=== PATIENT | female | born 1955 | race Caucasian/White ===

== ENCOUNTER 2024-10-12 11:28 | Outpatient (AMB) | payer MEDICARE, SELFPAY ==
--- NOTE | 2024-10-12 12:00 | A.OFFVIS_ITS ---
Intake Vital Signs 10/12/24 12:20 Height 5 ft 3 in Weight 138 lb BMI 24.4 BP 144/74 H Blood Pressure Location Lt brachial Position Sitting Respiration 13 Pulse 90 Pulse Source Pulse Oximeter Pulse Oximetry (%) 98 Oxygen Delivery Method Room Air Intake Visit Reasons: Establish Care Intake Note: new patient to establish care and annual awv Surfacing Technician Required: No Allergies morphine Allergy (Severe, Verified 10/12/24 12:29) Itching bandages Allergy (Severe, Uncoded 10/12/24 12:29) Itching flu vaccine Allergy (Severe, Uncoded 10/12/24 12:29) Hives Medication List - Last Reconciled 10/13/24 by Sharon Mendoza, LIBRARIAN SPECIALIST- aspirin 81 mg PO DAILY atorvastatin 40 mg PO DAILY cholecalciferol (vitamin D3) 10 mcg PO DAILY duloxetine 30 mg PO DAILY duloxetine 60 mg PO DAILY lorazepam 1 mg PO BID omeprazole 40 mg PO DAILY oxycodone 5 mg PO BID PRN polysaccharide iron complex (Ferrex) 150 mg PO DAILY trazodone 200 mg PO BEDTIME PRN Do you need a note to return to daycare/school/sports/work: No HPI HPI Comments History of Present Illness Details 69 y/o F with chronic pain, cannabis use , coronary artery disease, major depressive disorder, fibromyalgia, failed back syndrome, GERD with hiatal hernia, hyperlipidemia, irritable bowel syndrome, migraine, renal stones, osteoporosis, polyps of the colon, PTSD, rosacea, urinary incontinence, history of thoracic compression fracture, LBBB , prediabetes, anemia Here today for AWV. The Medicare Annual Wellness Visit (AWV) is a yearly appointment with a health professional to identify health risks and help reduce them and to create or update a personalized prevention plan. During a Medicare AWV, health professionals should also review any current opioid prescriptions, detect any cognitive impairment, and establish or update medical and family history. SurgHx: Insertion of spinal cord stimulator, , lumbar spinal fusion, partial hysterectomy, tonsillectomy FHx: Y SocHx: Lives with her daughter, son-in-law, and two grandchildren Health Maintenance: See scanned preventative medicine assessment with personalized health plan and screening schedule. Colon: 03/12/2019 Mammo January 2024 DEXA Bone density test indicating osteoporosis; treated with injections - i do not have these results 2023 normal per report Vaccines: PCV 13 2017, Tdap 2013, zoster 2012, allergy to flu shot AAA screen: n/a EKG: yes done today shows LBBB - not new, managed by [facility] [place] [facility] Care: [facility] pain mgmt Psychiatry Dr Joaquin Renal * [facility]MIN[facility] DEVELOPER Pain mgmt Endo GI Shilpi Dhillon appt 10/23/24 Visual Acuity: glasses last exam 2 year ago Hearing Screening: no issues, no aides ACP: HCP Shakeel Spivey Dietary/Nutrition/Exercise Edu provided: Y Results Labs resulted 10/01/2024 ordered by an outside provider show normal iron profile and ferritin, normal electrolytes, BUN 28, creatinine 1.23, EGFR 47, normal LFTs During the course of the visit the patient was educated and counseled about appropriate screening and preventative services. Patient instructions were provided to the patient in written or electronic format. I have reviewed and verified the above information. The patient is a 69-year-old female presenting for an annual Medicare wellness visit and to establish care. The patient reports having basal joint arthritis, which causes significant discomfort but she is not inclined towards surgical intervention due to her age and previous experiences. She was released by her orthopedist after declining further cortisone injections or surgery. She has not pursued occupational therapy but remains open to considering it. The patient also experiences severe arthritis pain in her knee, for which she previously received injections. After a negative reaction to the last injection, she is reluctant to continue this treatment. Besides, she reports a chronic history of fibromyalgia contributing to her daily pain. The patient reports a diagnosis of anemia with ongoing treatment. She reports following a renal diet independently after being diagnosed with renal disease. she has osteoporosis, evidenced by a bone density test and is under management with periodic injections. She also reported a prior addiction to fentanyl prescribed for pain management but notes current management with a spinal cord stimulator and marijuana use for chronic pain. ROS: - General : feel she needs more help in the home w her ADLs - Musculoskeletal: Reports bilateral kne e pain, hip pain, thigh pain - Skin: Reports skin rash on the abdomen sometimes itchy - uses topical nystatin powder and cream with + effect Exam Awake alert NAD RRR, 2/6 murmur RSB LS CTAB BLE skin intact, decreased PP, hairless, no edema No rash to abd/inguinal folds Alert and oriented Plan - Consider referral for occupational the rapy for basal joint arthritis - Referral placed for consultation with a different activity specialist if the patient chooses - Referral to endocrinology for osteopor osis management - Referral to pain management center for fibromyalgia and chronic pain evaluation - Referral to [facility] for home assistance evaluation - Referral for renal consultation - Cont current meds - Return for re-evaluation in [facility] six months or sooner if symptoms change An additional 40 minutes was spent addressing the problem(s) noted at todays visit. This includes time spent before the visit reviewing the chart, time spent during the visit, and time spent after the visit on documentation [facility] Medical History (Updated 10/13/24 @ 15:41 by IVAN Vallejo) Migraines Anxiety and depression GERD (gastroesophageal reflux disease) Kidney disease Fibromyalgia Neck ache Osteoarthritis Arthritis Hypertension Surgical History (Updated 10/12/24 @ 12:36 by IVAN Vallejo) Spinal arthrodesis present History of back surgery H/O: hysterectomy H/O section Family History (Updated 10/12/24 @ 12:15 by Brandi Underwood MA) Sister Mental health disorder Maternal Grandfather Cancer Mother Hypertension Cardiovascular disease High cholesterol Diabetes Father Hypertension Cardiovascular disease High cholesterol Social History (Updated 10/12/24 @ 12:16 by Brandi Underwood MA) Household Members: None Both parents involved: No Caregiver staying overnight: No Housing: Apartment Are you a primary home care manager rn to a significant other at home: No Do you presently have visiting nurse or other home services: No 75 years or older and lives alone: No Alcohol intake: never Patient Tobacco Use Status: Never used Tobacco e-Cigarette/Vaping Use: Never Used Second Hand Smoke Exposure: No Substance Use Type: Marijuana Questionnaire Medicare Wellness Checkup [age] What gender do you identify with?: female During the past 4 weeks, how much have you been bothered by emotional problems such as feeling anxious, depressed, irritable, sad or downhearted, and blue?: not at all During the past 4 weeks, has your physical & emotional health limited your social activities with family, friends, neighbors, or groups?: not at all During the past 4 weeks, how much bodily pain have you generally had?: severe pain During the past 4 weeks, was someone available to help you if you needed & wanted help?: yes, a little During the past 4 weeks, what was the hardest physical activity you could do for at least 2 minutes?: light Can you get to places out of walking distance without help? (For eg., can you travel alone on buses, taxis or drive your car?): Yes Can you go shopping for groceries or clothes without someone's help?: Yes Can you prepare your own meals?: Yes Can you do your housework without help?: Yes Because of any health problems, do you need the help of another person with your personal care needs such as eating, bathing, dressing or getting around the house?: No Can you handle your own money without help?: Yes During the past 4 weeks, how would you rate your health in general?: fair During the past 4 weeks how have things been going for you?: good & bad parts about equal Are you having difficulties driving your car?: no Do you always fasten your seat belt when you are in a car?: yes, usually During past 4 weeks, have you been bothered by the following: never: Falling or dizzy when standing up, Sexual problems?, Trouble eating well?, Teeth or denture problems?, Problems using the telephone? and Tiredness or fatigue? Have you fallen 2 or more times in the past year?: No Are you afraid of falling?: No Are you a smoker?: no During the past 4 weeks, how many drinks of wine, beer, or other alcoholic beverages did you have?: no alcohol at all Do you exercise for about 20 minutes 3 or more times a week?: no, I usually do not exercise this much Have you been given information to help with the following?: no: Hazards in your house that might hurt you? and no: Keeping track of your medications? How often do you have trouble taking medicines the way you have been told to take them?: I always take medicine as prescribed How confident are you that you can control & manage most of your health problems?: very confident What is your race?: White Activity of Daily Living Bathing - sponge bath, tub bath or shower: receives no assistance (gets in/out by self, if usual bathing means Dressing - getting clothes from closets & drawers, including inner/outer garments & fasteners.: gets clothes & gets completely dressed without help Toileting - going to the 'toilet room' for urine/bowel elimination & cleaning self/arranging clothes: goes to toilet room, cleans self, arranges clothes without help Transfer: moves in & out of bed and chair without help (may use support object) Continence: controls urination/bowel movements completely by self Feeding: feeds self without help Total Score: 0 Information obtained from: patient Using telephone: independent Traveling: independent Shopping: independent Preparing meals: independent Housework: independent Taking medicine: independent Managing money: independent PHQ-9 Over the last 2 weeks, how often have you been bothered by any of the following problems? 98603 - PHQ-9 Billing: Patient declined-do not bill Source: Developed by Drs. Petey Barton, Aleta Pedersen, Chin Rapp and colleagues, with an educational shantal from [employer]. Physical Exam Vital Signs: Last Vital Signs Pulse 90 10/12/24 12:20 Resp 13 10/12/24 12:20 BP 144/74 H 10/12/24 12:20 Pulse Ox 98 10/12/24 12:20 Oxygen Delivery Method Room Air 10/12/24 12:20 BMI result Body Mass Index 24.4 Office Procedures EKG 21060-[id number], Complete Vision Screening Right Eye: 20/25 Left Eye: 20/20 Bilateral: 20/20 Color: Pass Corrected: Pass (with glasses) 97622 - Vision Screening Results AMB Hemoglobin A1c 2 AMB Hemoglobin A1c 5.6 % Last Edit by Brandi Underwood MA on 10/12/24 12:34 Results Reviewed Results Reviewed: Laboratory Last Values Hgb A1c (Clinic) 5.6 % (4.0-6.0) 10/12/24 12:02 Assessment & Plan Assessment & Plan (1) Encounter for subsequent annual wellness visit (AWV) in Medicare patient: Code(s): Z00.00 - Encounter for general adult medical examination without abnormal findings (2) CKD (chronic kidney disease) stage 3, GFR 30-59 ml/min: Code(s): N18.30 - Chronic kidney disease, stage 3 unspecified Qualifiers: Chronic kidney disease stage 3 subtype: stage 3a (GFR 45-59) Qualified Code(s): N18.31 - Chronic kidney disease, stage 3a (3) MDD (major depressive disorder), recurrent episode: Code(s): F33.9 - Major depressive disorder, recurrent, unspecified Qualifiers: Major depression episode severity: moderate Qualified Code(s): F33.1 - Major depressive disorder, recurrent, moderate (4) Fibromyalgia: Code(s): M79.7 - Fibromyalgia (5) CAD (coronary artery disease): Code(s): I25.10 - Atherosclerotic heart disease of [place] coronary artery without angina pectoris Qualifiers: Coronary Disease-Associated Artery/Lesion type: [place] artery [place] vs. transplanted heart: [place] heart Associated angina: without angina Qualified Code(s): I25.10 - Atherosclerotic heart disease of [place] coronary artery without angina pectoris (6) Prediabetes: Code(s): R73.03 - Prediabetes (7) Allergy to influenza vaccine: Code(s): Z88.7 - Allergy status to serum and vaccine (8) Osteoporosis: Code(s): M81.0 - Age-related osteoporosis without current pathological fracture Qualifiers: Osteoporosis type: age-related Presence of current pathological fracture: without current pathological fracture Qualified Code(s): M81.0 - Age- related osteoporosis without current pathological fracture (9) Chronic pain: Code(s): G89.29 - Other chronic pain Qualifiers: Chronic pain type: chronic pain syndrome Qualified Code(s): G89.4 - Chronic pain syndrome (10) Failed back syndrome: Code(s): M96.1 - Postlaminectomy syndrome, not elsewhere classified (11) S/P insertion of spinal cord stimulator: Code(s): Z96.89 - Presence of other specified functional implants (12) Hyperlipidemia: Code(s): E78.5 - Hyperlipidemia, unspecified Qualifiers: Hyperlipidemia type: mixed hyperlipidemia Qualified Code(s): E78.2 - Mixed hyperlipidemia (13) Home help needed: Code(s): Z74.2 - Need for assistance at home and no other household member able to render care (14) LBBB (left bundle branch block): Code(s): I44.7 - Left bundle-branch block, unspecified (15) Heart murmur: Code(s): R01.1 - Cardiac murmur, unspecified (16) Anemia: Code(s): D64.9 - Anemia, unspecified Qualifiers: Anemia type: due to chronic kidney disease Chronic kidney disease stage 3 subtype: stage 3a (GFR 45-59) Chronic kidney disease stage: stage 3 (moderate) Qualified Code(s): N18.31 - Chronic kidney disease, stage 3a; D63.1 - Anemia in chronic kidney disease (17) Hiatal hernia with GERD: Code(s): K44.9 - Diaphragmatic hernia without obstruction or gangrene; K21.9 - Gastro- esophageal reflux disease without esophagitis (18) IBS (irritable bowel syndrome): Code(s): K58.9 - Irritable bowel syndrome, unspecified Qualifiers: Irritable bowel syndrome type: with both diarrhea and constipation Qualified Code(s): K58.2 - Mixed irritable bowel syndrome (19) Migraine without aura: Code(s): G43.009 - Migraine without aura, not intractable, without status migrainosus Qualifiers: Status migrainosus presence: without status migrainosus Intractability: not intractable Qualified Code(s): G43.009 - Migraine without aura, not intractable, without status migrainosus (20) History of renal calculi: Code(s): Z87.442 - Personal history of urinary calculi (21) Colon polyps: Code(s): K63.5 - Polyp of colon Qualifiers: Colon polyp type: unspecified Colon location: unspecified part of colon Qualified Code(s): K63.5 - Polyp of colon (22) Osteoarthritis of right knee: Code(s): M17.11 - Unilateral primary osteoarthritis, right knee Qualifiers: Osteoarthritis type: primary Qualified Code(s): M17.11 - Unilateral primary osteoarthritis, right knee (23) Osteoarthritis of hands, bilateral: Code(s): M19.041 - Primary osteoarthritis, right hand; M19.042 - Primary osteoarthritis, left hand Qualifiers: Osteoarthritis type: primary Qualified Code(s): M19.041 - Primary osteoarthritis, right hand; M19.042 - Primary osteoarthritis, left hand Plan . Orders: Orders AMB Hemoglobin A1c 10/12/24 Z13.9 - Encounter for screening, unspecified AMB EKG-In Office 10/12/24 Z13.6 - Encounter for screening for cardiovascular disorders Complete Blood Count no Diff 10/12/24 E78.5 - Hyperlipidemia, unspecified, M81.0 - Age-related osteoporosis without current pathological fracture Comprehensive [place]. Panel Fast 10/12/24 E78.5 - Hyperlipidemia, unspecified, M81.0 - Age-related osteoporosis without current pathological fracture Lipid Panel 10/12/24 E78.5 - Hyperlipidemia, unspecified, M81.0 - Age-related osteoporosis without current pathological fracture Hemoglobin A1c 10/12/24 E78.5 - Hyperlipidemia, unspecified, M81.0 - Age- related osteoporosis without current pathological fracture IRON PROFILE 10/12/24 E78.5 - Hyperlipidemia, unspecified, M81.0 - Age-related osteoporosis without current pathological fracture TSH reflex Free T4 10/12/24 E78.5 - Hyperlipidemia, unspecified, M81.0 - Age- related osteoporosis without current pathological fracture Vitamin D 25-OH Total 10/12/24 E78.5 - Hyperlipidemia, unspecified, M81.0 - Age-related osteoporosis without current pathological fracture Referrals Endocrinology Referral M81.0 - Age-related osteoporosis without current pathological fracture Nurse Navigator Referral Z74.2 - Need for assistance at home and no other household member able to render care Nephrology Referral N18.30 - Chronic kidney disease, stage 3 unspecified Pain Management Referral G89.29 - Other chronic pain, M79.7 - Fibromyalgia, M96.1 - Postlaminectomy syndrome, not elsewhere classified, Z96.89 - Presence of other specified functional implants Patient Instructions: Walk-In Care (Urgent Care): We Make it Easy Walk-in for urgent medical issues such as: ? Seasonal Allergies ? Insect Bites ? Cough ? Diarrhea ? Acute Asthma Attacks ? Back, Knee or Joint Pain ? Ear Infection ? Fever without a Rash ? Headaches ? Nausea ? [place], Rash or Skin Irritation ? Sore Throat ? Sports Physicals ? Vomiting Most insurances are accepted. Patients do not need to be part of the [facility] to seek care at the walk-in clinic. Locations [facility], [place] [address] ? [phone] [facility] in [place] provides services to ages 18 and over. Open Saturday-Saturday: 8 a.m. to 5 p.m. and Saturday: 9 a.m. to 3 p.m.* *Hours may vary due to staffing availability. To confirm Walk-In Care hours in [place], please call [phone]. [address] [place] [address] ? [phone] [facility] in [place] provides services to ages 12 and over. Open Saturday-Saturday: 8 a.m. to 5 p.m. Hours may vary due to staffing availability. To confirm Walk-In Care hours in [place], please call [phone]. LABORATORY SERVICES: [facility] Lab ? Primary Location [address] [place] [address] Saturday through Saturday 6:00 AM ? 5:00 PM Saturday 7:00 AM ? 11:00 AM* [phone] [facility] Lab is centrally located near the front entrance of the [facility] for easy outpatient access. Convenient parking is provided for outpatients. *Hours may vary due to staffing availability. To confirm Laboratory hours for any location, please call [phone]. Offsite Location For your convenience, we offer offsite laboratory draw stations at the following locations: [address] [place] [address] ? [address], [address] Saturday through Saturday 7:30 AM ? 1:00 PM* [phone] *Hours may vary due to staffing availability. To confirm Laboratory hours for any location, please call [phone]. [place] ? [address] Saturday through Saturday 6:00 AM ? 3:30 PM* Saturday 6:30 AM ? 3 PM* [phone] *Hours may vary due to staffing availability. To confirm Laboratory hours for any location, please call [phone] [place] [address] Saturday through Saturday 7:30 AM ? 4:00 PM* [phone] *Hours may vary due to staffing availability. To confirm Laboratory hours for any location, please call [phone] [place] [address] Saturday through 9:00 AM ? 4:00 PM* *Hours may vary due to staffing availability. To confirm Laboratory hours for any location, please call [phone]. Appointments are not necessary. Walk-ins are welcome. Like all the departments throughout the [facility], our Lab undergoes frequent reviews to ensure the quality and accuracy of test results, and our [facility] takes special pride in its status as a nationally accredited facility. Patient Portal: ONE PATIENT. ONE RECORD. BETTER CARE. [facility] has a fully integrated, cutting- edge mobile electronic health information system that has revolutionized the way we care for our patients and manage our organization. This system improves communication and coordination enabling us to provide safe, higher-quality care, and an overall positive experience for staff and patients. Our first priority, as always, is to deliver the highest quality care possible. The system is running in the background supporting that priority. This portal is for all [facility] and [facility] services and practices. If you are experiencing any technical difficulties with enrolling or logging into the Patient Portal please complete the [facility] Patient Portal Technical Support Form. [facility] now offers a new secure on-line interactive tool for patients to review their health information ? ?Patient Portal. This interactive web portal will enable patients and their families to take an active role in their care by providing easy, secure access to their health information via the internet. The Patient Portal provides patients with instant access to their health information, including laboratory results, medications, allergies, demographic information, visit history, and more. In addition to managing their own care, parents and health care proxies with authorized consent will appreciate the ability to access the records of those individuals for whom they provide care. Please note: if you wish to gain access (Proxy) to another patient?s portal, you will be required to come to the Medical Records Department in person at [facility]. Both the patient giving proxy access and the proxy will need to provide photo identification and complete the appropriate authorization. The Patient Portal also allows track their appointments online. The [facility] Patient Portal also saves patients time by allowing them to submit updates to their demographic and contact information prior to their visits. Portal email notifications will also alert patients to any new activity on their portal, such as test results and new appointments. In order to initially enroll in the [facility] Patient Portal, you will need to enter some required information including the following: * your [facility] Medical Record number * your personal home email address * name * date of Please note: In order to enroll in the [facility] Patient Portal, we need to have your email address on file in your electronic medical record. ?The email address needs to be specific for one person (yourself) in order for your Portal enrollment to be successful. ?You can update your email address in person with our Registration staff when you are registering for a hospital visit. ?Otherwise, you will need to come to the Health Information Management (Medical Records) Department at [facility]. ?We are open from Saturday ? Saturday from 7:30 a.m. ? 4:30 p.m. ?You will be required to present a photo id. Once you have successfully enrolled in the Patient Portal, you will receive a one-time user id and password for the Portal, sent to your email address. ?This will allow you to log into the Patient Portal within 99 hrs and reset your own logon id and password, and define personal security questions. ?Once your permanent login and password have been set, you can log into the [facility] Patient Portal at any time via the blue button above or from the Portal Logon button on any page of the [facility] website. [facility] and [facility] encourage all of our patients to enroll in Patient Portal as it presents a valuable opportunity for patients and their families to actively participate in their care and stay healthy Welcome to [facility]. ?We look forward to working with you. Health screenings for women You should visit your health care provider from time to time, even if you are healthy. The purpose of these visits is to: Screen for medical issues Assess your risk for future medical problems Encourage a healthy lifestyle Update vaccinations and other preventive care services Help you get to know your provider in case of an illness Information Even if you feel fine, you should still see your provider for regular checkups. These visits can help you avoid problems in the future. For example, the only way to find out if you have high blood pressure is to have it checked regularly. High blood sugar and high cholesterol levels also may not have any symptoms in the early stages. A simple blood test can check for these conditions. There are specific times when you should see your provider or receive specific health screenings. The [place] Preventive Services Task Force publishes a list of recommended screenings. Below are screening guidelines for women ages 18 to 39. BLOOD PRESSURE SCREENING Your blood pressure should be checked at least once every 3 to 5 years if: Your blood pressure is in the normal range (top number less than 120 mm Hg and bottom number less than 80 mm Hg) You don't have risk factors for high blood pressure Ask your provider if you need your blood pressure checked more often if: The top number is 120 to 129 mm Hg or the bottom number is 70 to 79 mm Hg You have diabetes, heart disease, kidney problems, are overweight, or have certain other health conditions You have a first-degree relative with high blood pressure You are Black You had high blood pressure during a If the top number is 130 mm Hg or greater or the bottom number is 80 mm Hg or greater, this is considered stage 1 hypertension. Schedule an appointment with y our provider to learn how you can reduce your blood pressure. Watch for blood pressure screenings in your area. Ask your provider if you can stop in to have your blood pressure checked. BREAST CANCER SCREENING Experts do not agree about the benefits of breast self-exams in finding breast cancer or saving lives. Talk to your provider about what is best for you. A screening mammogram is not recommended for most women under age 40. Your provider may discuss and recommend mammograms, MRI scans, or ultrasounds if you have an increased risk for breast cancer, such as: A mother or sister who had breast cancer at a young age (most often starting screening earlier than the age the close relative was diagnosed) You carry a high-risk genetic marker CERVICAL CANCER SCREENING Cervical cancer screening should start at age 21 years unless your provider advises otherwise. After the first test: Women ages 21 through 29 should have a Pap test every 3 years. Exoprts do not agree on whether HPV testing is recommended for this age group. Women ages 30 through 65 should be screened with either a Pap test every 3 years or the HPV test every 5 years or both tests every 5 years (called cotesting ). Women who have been treated for precancer (cervical dysplasia) should continue to have Pap tests for 20 years after treatment or until age 65, whichever is longer. If you have had your uterus and cervix removed (total hysterectomy), and you have not been diagnosed with cervical cancer or precancer (high grade cervical neoplasia), you do not need cervical cancer screening. CHOLESTEROL SCREENING Cholesterol screening should begin at: Age 45 for women with no known risk factors for coronary heart disease Age 20 for women with known risk factors for coronary heart disease Repeat cholesterol screening should take place: Every 5 years for women with normal cholesterol levels More often if changes occur in lifestyle (including weight gain and diet) More often if you have diabetes, heart disease, kidney problems, or certain other conditions DIABETES SCREENING You should be screened for diabetes starting at age 35 and then repeated every 3 years if you have no risk factors for diabetes. Screening may need to start earlier and be repeated more often if you have other risk factors for diabetes, such as: You have a first degree relative with diabetes. You are overweight or have obesity. You have high blood pressure, prediabetes, or a history of heart disease. Screening for diabetes should be done if you are planning to become and you are overweight and have other risk factors such as high blood pressure. DENTAL EXAM Go to the dentist once or twice every year for an exam and cleaning. Your dentist will evaluate if you need more frequent visits. EYE EXAM Have an eye exam every 5 to 10 years before age 40. If you have vision problems, have an eye exam every 2 years or more often if recommended by your provider. You should have an eye exam that includes an examination of your retina (back of your eye) at least every year if you have diabetes. IMMUNIZATIONS Commonly needed vaccines include: Flu shot: get one every year. COVID-19 vaccine: ask your provider what is best for you. Tetanus-diphtheria and acellular pertussis (Tdap) vaccine: have one at or after age 19 as one of your tetanus-diphtheria vaccines if you did not receive it as an adolescent. Tetanus-diphtheria: have a booster (or Tdap) every 10 years. Varicella vaccine: receive 2 doses if you never had chickenpox or the varicella vaccine. Hepatitis B vaccine: receive 2, 3, or 4 doses, depending on your exact circumstances. Measles, mumps, and rubella (MMR) vaccine: receive 1 to 2 doses if you are not already immune to MMR. Your provider can tell you if you are immune. Ask your provider about the human papillomavirus (HPV) vaccine if: You have not received the HPV vaccine in the past You have not completed the full vaccine series (you should catch up on this shot) Ask your provider if you should receive other immunizations if you have certain health problems that increase your risk for some diseases such as pneumonia. INFECTIOUS DISEASE SCREENING Women who are sexually active should be screened for chlamydia and gonorrhea up until age 25. Women 25 years and older should be screened for chlamydia and gonorrhea if at high risk. Screening for hepatitis C: All adults ages 18 to 79 should get a one-time test for hepatitis C. people should be screened at every . Screening for human immunodeficiency virus (HIV): All people ages 15 to 65 should get a one-time test for HIV. Depending on your lifestyle and medical history, you may also need to be screened for infections such as syphilis and HIV, as well as other infections. PHYSICAL EXAM All adults should visit their provider from time to time, even if they are healthy. The purpose of these visits is to: Screen for disease Assess your risk of future medical problems Encourage a healthy lifestyle Update your vaccinations and other preventive care services Maintain a relationship with a provider in case of an illness Your height, weight, and BMI should be checked at every exam. During your exam, your provider may ask you about: Depression and anxiety Diet and exercise Alcohol and tobacco use Safety issues, such as using seat belts, smoke detectors, and intimate partner violence Your medicines and risk for interactions SKIN SELF-EXAM Your provider may check your skin for signs of skin cancer, especially if you're at high risk, such as if you: Have had skin cancer before Have close relatives with skin cancer Have a weakened immune system OTHER SCREENING Talk with your provider about colon cancer screening if you have a strong family history of colon cancer or polyps, or if you have had inflammatory bowel disease or polyps yourself. Routine bone density screening of women under 40 is not recommended. Quality Reporting (2019) Adult ([facility]/11/28/68) Smoking risk assessment performed?: Yes Patient Tobacco Use Status: Never used Tobacco Depression screening performed: Yes Screen Results: Yes Negative screen Systolic BP not done?: No Diastolic BP not done?: No BMI screening not done: No Sexual Activity Screening ([facility]) Sexually active?: Yes Immunizations ([facility], 117) Annual Influenza Vaccine: No Flu Vaccine not done: medical reason Measles Antibody Test: No Mumps Antibody Test: No Rubella Antibody Test: No Varicella Antibody Test: No Anti Hepatitis A IgG Antigen test: No Anti Hepatitis B Virus Surface Ab test: No Fall Risk Screening ([facility] [address]) Last assessed Fall Risk: 10/12/24 Fall risk assessment: No Falls in past year Dementia Assessment ([facility]) Cognitive assessment recorded: Yes Assessment of cognition with standardized tool: Yes (0/28 6 cit wnl ) Ophthalmol:Cataracts Visual Acuity (133) Visual acuity exam performed: Yes Coding Level of Care Code Medicare Subsequent (G0439) Est Pt Level 5 (59139) Diagnoses Encounter for subsequent annual wellness visit (AWV) in Medicare patient Z00.00 Stage 3a chronic kidney disease N18.31 Chronic kidney disease stage 3 subtype: stage 3a (GFR 45-59) Moderate episode of recurrent major depressive disorder F33.1 Major depression episode severity: moderate Fibromyalgia M79.7 Coronary artery disease involving [place] coronary artery of [place] heart without angina pectoris I25.10 Coronary Disease-Associated Artery/Lesion type: [place] artery [place] vs. transplanted heart: [place] heart Associated angina: without angina Prediabetes R73.03 Allergy to influenza vaccine Z88.7 Age-related osteoporosis without current pathological fracture M81.0 Osteoporosis type: age-related Presence of current pathological fracture: without current pathological fracture Chronic pain syndrome G89.4 Chronic pain type: chronic pain syndrome Failed back syndrome M96.1 S/P insertion of spinal cord stimulator Z96.89 Mixed hyperlipidemia E78.2 Hyperlipidemia type: mixed hyperlipidemia Home help needed Z74.2 LBBB (left bundle branch block) I44.7 Heart murmur R01.1 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; D63.1 Anemia type: due to chronic kidney disease Chronic kidney disease stage 3 subtype: stage 3a (GFR 45-59) Chronic kidney disease stage: stage 3 (moderate) Hiatal hernia with GERD K44.9; K21.9 Irritable bowel syndrome with both constipation and diarrhea K58.2 Irritable bowel syndrome type: with both diarrhea and constipation Migraine without aura and without status migrainosus, not intractable G43.009 Status migrainosus presence: without status migrainosus Intractability: not intractable History of renal calculi Z87.442 Polyp of colon, unspecified part of colon, unspecified type K63.5 Colon polyp type: unspecified Colon location: unspecified part of colon Primary osteoarthritis of right knee M17.11 Osteoarthritis type: primary Primary osteoarthritis of both hands M19.041; M19.042 Osteoarthritis type: primary CPT Codes Advance Care Planning - Time spent: 1-15 minutes, not on file ([id number]) EKG - CPT: 66474-Aouxulmuobsuvibvz, Complete ([id number]) Vision Screening - Vision Screenin - Vision Screening ([id number]) Advance Care Planning Advance Care Planning discussion: Exists, not on file Date of discussion: 10/13/24 Forms completed: Health Care Proxy, MOLST and Living will Time spent: 1-15 minutes, not on file Actual minutes spent: 5
[2024-10-12 12:20] VITALS: BP 144/74; PULSE 90; RESP 13; O2SAT 98; BMI 24.4
--- OUTSIDE RECORDS SUMMARY | 2024-10-12 13:12 | XMS_ITS | Continuity of Care Document ---
Author Organization [facility] [address] [place] [address] Phone [phone] Care Team Providers Care Trust Manager Assistant Name Role Phone Gladys Blanchard . GONZÁLEZ Care Team Information Receiv er [phone] Problems Active Problems Provider Date Arthritis of joint of right hand Louis Grossman M.D. Onset: 04/04/2023 Bilateral bursitis of hips Louis Grossman M.D. Onset: 04/04/2023 Carotid artery stenosis Louis Grossman M.D. On set: 04/04/2023 Chronic chest pain Louis Grossman M.D. Onset: 04/04/2023 Chronic pain syndrome Louis Grossman M.D. Onse t: 04/04/2023 Coronary arteriosclerosis Louis Grossman M.D. Onset: 04/04/2023 Depressive disorder Louis Grossman M.D. Onset: 04/04/2023 Fibromyalgia Louis Grossman M.D. Onset: Hiatal hernia with gastroesophageal reflux Louis Grossman M.D. Onset: 04/04/2023 History of SARS-CoV-2 Louis Grossman M.D. Onse t: 04/04/2023 Hypercalcemia Louis Grossman M.D. Onset: Hyperlipidemia Louis Grossman M.D. Onset: Essential hypertension Louis Grossman M.D. Ons et: 04/04/2023 Impaired fasting glycemia Louis Grossman M.D. Onset: 04/04/2023 Irritable bowel syndrome Louis Grossman M.D. O nset: 04/04/2023 Left bundle branch block Louis Grossman M.D. O nset: 04/04/2023 Degeneration of lumbar intervertebral disc Louis Grossman M.D. Onset: 04/04/2023 Lumbar disc prolapse with radiculopathy Louis gallardo M.D. Onset: 04/04/2023 Migraine Louis Grossman M.D. Onset: Kidney stone Louis Grossman M.D. Onset: Osteopenia Louis Grossman M.D. Onset: Osteoporosis Louis Grossman M.D. Onset: Polyp of colon Louis Grossman M.D. Onset: Posttraumatic stress disorder Faisal Irene Onset: 04/04/2023 Multiple nodules of lung Louis Grossman M.D. O nset: 04/04/2023 Rosacea Louis Grossman M.D. Onset: Compression fracture of thoracic spine Louis davenport M.D. Onset: 04/04/2023 Incontinence Louis Grossman M.D. Onset: Osteoarthritis Louis Grossman M.D. Onset: Hypercholesterolemia Louis Grossman M.D. Onset : 04/05/2023 Social History Type Date Description Comments Sex Unknown Tobacco Use Start: Unknown End: Unknown Patient is a former smoker Recreational Drug Use Smokes med ical marijuana 1-2 times per day Smoking Status Reviewed: 04/05/23 Patient is a former smoker Allergies and adverse reactions Active Allergies Criticality Reaction Severity Comments Date Adhesive Unable to assess criticality 04/05/2023 Morphine Unable to assess criticality 04/05/2023 Influenza Vaccines Unable to assess criticality 04/05/2023 Medications Active Medications SIG Qnty Indications Ordering Provider Date Aspirin Adult Low [id number] Tablets DR 1 by mouth every day Louis Grossman M.D. 04/05/[id number] 1 tab by mouth twice a day 90caps Louis Grossman M.D. 04/05/2023 [id number] Tablets 1 by mouth every day 90tabs Unknown Atorvastatin Crxxvcd46xb Tablets 1 by mouth every day 90tabs Unknown Trazodone [id number] Tablets take two tablets by mouth at bedtime Unknown Duloxetine OBR37lk Caps DR Part 1 by mouth every day Unknown Vital Signs Date Vital Result Comment 05/19/2024 9:05am BP Systolic 118 mmHg BP Diastolic 68 mmHg Heart Rate 90 /min Height 63 inches 5'3 Weight 140.00 lb BMI (Body Mass Index) 24.8 kg/m2 Results Test Acquired Date Facility Test Result H/L [place] Laboratory test finding 06/03/2024 [facility] Calcium 10.2 mg/dL 8.7-10.3 Albumin 4.0 g/dL 3.9-4.9 PTH, Intact 39 pg/mL 15-65 Vitamin D, 25-Hydroxy 64.9 ng/mL 30.0-100. 0 1 Phosphorus 3.7 mg/dL 3.0-4.3 Complete Abc With Diff 04/25/2023 [facility] WBC 4.7 K/MM3 (4.0-11.0 ) RBC 3.72 M/MM3 Low (4.20-5.4 0) HGB 11.2 GM/DL Low (11.7-15. 5) HCT 36.4 % (35.7-45. 8) MCV 97.8 FL (80.0-100 .0) MCH 30.1 pg (27.0-34. 0) MCHC 30.8 g/dL Low (33.0-37. 0) PLT 340 K/MM3 (150-460) RDW-SD 52.1 FL High (<47.0) MPV 9.5 FL (9.4-12.4 ) Automated NRBC 0.0 #/100WBC'S Abs. NRBC 0.0 K/MM3 Neut # 2.9 K/MM3 (1.3-7.0) Lymph # 1.4 K/MM3 (0.8-3.1) Miner# 0.3 K/MM3 Low (0.4-0.9) Eo # 0.1 K/MM3 (0.0-0.4) Baso # 0.0 K/MM3 (0.0-0.1) Abs. Imm Gran 0.0 K/MM3 Neut 60.4 % (44-76) Lymph 29.2 % (15-43) Monocyte 7.2 % (4.5-10.5 ) Eo 2.8 % (0-6) Baso 0.2 % (0-2) Imm Gran 0.2 % Laboratory test finding 04/25/2023 [facility] PTH, Intact 33 pg/mL (15-65) Calcium 10.2 mg/dL (8.6-10.5 ) Jicogdn-Ed-Dcgm t 04/25/2023 [facility] Calcium, Urine, MG/DL 3.3 mg/dL Calcium, Urine GM/24HR 0.08 GM/24HR (0.05-0.3 0) Creat Clearance 04/25/2023 [facility] Creatinine, Urine MG/DL 32.5 mg/dL Blood Creat 1.1 mg/dL High (0.5-1.0) Creat Clearance 47.2 mL/min Low (66-143) Creatinine Ur GM/24HR 0.7 GM/24HR Low (0.72-1.5 ) Laboratory test finding 04/25/2023 [facility] Albumin 4.2 GM/DL (3.4-4.8) Creatinine 04/25/2023 [facility] Creatinine 1.1 mg/dL High (0.5-1.0) Estimated GFR Creatinine 57 ML/MIN/1.7 3M2 2 Period & Volume 04/25/2023 [facility] Urine Collection Period 24 HRS Volume 2300 MLS 1 Vitamin D deficiency has been defined by the [place] [employer] and an Endocrine Society practice guideline as a level of serum 25-OH vitamin D less than 20 ng/mL (1,2). The Endocrine Society went on to further define vitamin D insufficiency as a level between 21 and 29 ng/mL (2). 1. IOM ([place] [employer]). 2010. Dietary reference intakes for calcium and D. [place]: The National Academies Press. 2. Jackelyn MF, David TOWNSEND, Rm TUCKER, et al. Evaluation, treatment, and prevention of vitamin D deficiency: an Endocrine Society clinical practice guideline. JCEM. 2010; 96(7):1911-30. 2 Creatinine based est imated glomerular filtration (eGFR) in adults is calculated using the National Kidney Foundation recommended 2020 CKD-EPI equation. Estimates GFR from serum creatinine, age and sex. Medical Devices Description No Information Available Encounters Type Date Location Provider Dx Diagnosis Office Visit 05/19/2024 9:15a Main Office GONZÁLEZ Taylor M81.0 Age-related osteoporosis w/o current pathological fracture Assessments Date Code Description Provider 05/19/2024 M81.0 Age-related oste oporosis without current pathological fracture GONZÁLEZ Taylor Plan of Treatment Future Appointment(s):* 05/19/2025 9:15 am - GONZÁLEZ Taylor at Main Office 05/19/2024 - GONZÁLEZ Taylor* M81.0 Age-related osteoporosis without current pathological fracture Functional Status Description No Information Available Mental Status Description No Information Available Referrals Description No Information Available
== END 2024-10-12 13:04 | disposition home or self-care (01) ==
PROVIDERS: PCP Nurse Practitioner Family; Visit Provider Nurse Practitioner Family
DX: Z00.00 Encounter for general adult medical examination without abnormal findings (principal)

== ENCOUNTER → 2024-10-12 11:28 | Outpatient (BNVA) | payer MEDICARE, SELFPAY | PROVIDERS: PCP Nurse Practitioner Family; Visit Provider Nurse Practitioner Family | DX: Z00.00 Encounter for general adult medical examination without abnormal findings (principal); I25.10 Atherosclerotic heart disease of native coronary artery without angina pectoris; M79.7 Fibromyalgia; K21.9 Gastro-esophageal reflux disease without esophagitis; E78.5 Hyperlipidemia, unspecified; M81.0 Age-related osteoporosis without current pathological fracture; N18.31 Chronic kidney disease, stage 3a; F33.1 Major depressive disorder, recurrent, moderate; R73.03 Prediabetes; G89.4 Chronic pain syndrome; M96.1 Postlaminectomy syndrome, not elsewhere classified; E78.2 Mixed hyperlipidemia; I44.7 Left bundle-branch block, unspecified; R01.1 Cardiac murmur, unspecified; D63.1 Anemia in chronic kidney disease; K44.9 Diaphragmatic hernia without obstruction or gangrene; K58.2 Mixed irritable bowel syndrome; G43.009 Migraine without aura, not intractable, without status migrainosus; K63.5 Polyp of colon; M17.11 Unilateral primary osteoarthritis, right knee; M19.041 Primary osteoarthritis, right hand; M19.042 Primary osteoarthritis, left hand; Z87.442 Personal history of urinary calculi; Z96.89 Presence of other specified functional implants; Z74.2 Need for assistance at home and no other household member able to render care | CPT/HCPCS: 83036; 93005; 99212 ==

== ENCOUNTER 2024-10-14 07:51 | Outpatient (REF) | payer MEDICARE, SELFPAY ==
[2024-10-14 11:13] LABS: Hematocrit 36.1 % (37.0-47.0); Hemoglobin 11.8 g/dl (12.0-16.0); Mean Corpuscular HGB Conc 32.7 g/dl (31.0-35.0); Mean Corpuscular Hemoglobin 31.4 pg (27.0-33.0); Mean Platelet Volume 9.5 fL (9.4-12.3); Platelet Count 359 X10*3/uL (160-400); Red Blood Count 3.76 X10*6/uL (4.20-5.50); Red Cell Distribution Width 14.1 % (11.0-16.0); White Blood Count 5.7 X10*3/uL (4.8-10.8)
[2024-10-14 11:28] LABS: Estimated Average Glucose 120 mg/dL; Hemoglobin A1c % 5.8 % (<6.0)
[2024-10-14 11:44] LABS: Alanine Aminotransferase 24 U/L (0-31); Alkaline Phosphatase 77 U/L (39-117); Anion Gap 14 (12-20); Aspartate Amino Transferase 18 U/L (5-31); Bilirubin Total 0.2 mg/dL (0.0-1.0); Blood Urea Nitrogen 26 mg/dL (9-16); Calcium 9.7 mg/dL (8.4-10.2); Carbon Dioxide 24 mmol/L (22-29); Chloride 108 mmol/L (96-108); Cholesterol 186 mg/dL (<200); Estimated Glomerular Filt Rate 47; Glucose Fasting 165 mg/dL (60-99); HDL Cholesterol 70 mg/dL (>40); Iron 39 mcg/dL (30-160); LDL Cholesterol Calculated 93 mg/dL (<100); Percent Iron Saturation 12 % (15-50); Potassium 4.1 mmol/L (3.3-5.1); Sodium 142 mmol/L (135-145); Total Iron Binding Capacity 314 mcg/dL (228-428); Total Protein 7.9 g/dL (6.5-8.0); Triglycerides 116 mg/dL (<150); Unsaturated Iron Binding 275 ug/dL
[2024-10-14 12:05] LABS: TSH reflex Free T4 3.54 uIU/mL (0.32-4.0); Vitamin D 25-OH Total 29.3 ng/mL (>30)
== END 2024-10-14 07:52 | disposition home or self-care (01) ==
LOC: HO.WFDLDS 07:51
PROVIDERS: Visit Provider Nurse Practitioner Family
DX: M81.0 Age-related osteoporosis without current pathological fracture (principal); E78.5 Hyperlipidemia, unspecified; Z13.1 Encounter for screening for diabetes mellitus
CPT/HCPCS: 36415; 80053; 80061; 82306; 83036; 83540; 84443; 85027

== ENCOUNTER 2025-03-08 08:41 | Outpatient (AMB) | payer MEDICARE, SELFPAY ==
--- NOTE | 2025-03-08 08:53 | A.OFFVIS_ITS ---
Vital Signs 03/08/25 08:57 Height 5 ft 3.39 in Weight 145 lb 8.081 oz BMI 25.5 BP 134/64 Blood Pressure Location Rt brachial Position Sitting Pulse 65 Pulse Source Pulse Oximeter Pulse Oximetry (%) 99 Oxygen Delivery Method Room Air Intake Visit Reasons: Osteoporosis Intake Note: New patient internally referred by PCP for Osteoporosis. Wildlife Control Agent Required: No Accompanied by: Self / Same As Patient Allergies morphine Allergy (Severe, Verified 03/08/25 08:57) Itching bandages Allergy (Severe, Uncoded 03/08/25 08:57) Itching flu vaccine Allergy (Severe, Uncoded 03/08/25 08:57) Hives HPI Comments Details: The patient is a 69-year-old female presenting with osteoporosis. She received Reclast in June 2024 and has a hip T-score of -3.5. The patient experienced vertebral fractures requiring four surgeries but denies fractures in other sites. Previous calcium supplementation was discontinued due to concerns of high calcium levels, although current levels appear normal. She was advised to consume 1200 mg of calcium daily through dietary sources and consumes dairy and vegetables rich in calcium. The patient experiences gastroesophageal reflux, previously managed with omeprazole, but is now treated with ropramazole. Menstruation began at age [age] and ended at 40 due to hysterectomy for fibroids. 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 - Reclast (zoledronic acid) - 1 dose in June 2024 for osteoporosis; well- tolerated. - Previous calcium supplements discontinued; no current supplements. - Omeprazole - for gastroesophageal reflux, discontinued. - Ropramazole - current treatment for gastroesophageal reflux. - Baby aspirin - current use; unspecified indication. - Vitamin D3 - 1000 IU daily for supplementation. - Back injections - for chronic back pain; details of medication unspecified. First diagnosed in []. Saw endo at [facility] and given Reclast in 2022 Received treatment in the past with Reclast ,in 2023 . Tolerated treatment well without complication. No history of pathologic fracture or ONJ. Has several servings of dietary calcium per day in the form of cheese, cereal , broccoli . Not Takes Calcium supplement . Takes 1000 IU of Vitamin D daily. took PPI for severe GERD , anticoagulant, antiepileptic or glucocorticoid medication. 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 UTD on dental cleanings and sees dentist every 6 months. No planned upcoming dental work or extractions. DXA dated []:t- Score of -3.5 in femoral neck 02/03/2025 No tobacco use or heavy ETOH use Labs: [facility] Medical History (Updated 10/13/24 @ 15:41 by WILDA VallejoP-KESHAWN) Migraines Anxiety and depression GERD (gastroesophageal reflux disease) Kidney disease Fibromyalgia Neck ache Osteoarthritis Arthritis Hypertension Surgical History (Updated 10/12/24 @ 12:36 by MARQUISE Vallejo-KESHAWN) Spinal arthrodesis present History of back surgery H/O: hysterectomy H/O section Family History (Updated 10/12/24 @ 12:15 by Brandi Underwood MA) Sister Mental health disorder Maternal Grandfather Cancer Mother Hypertension Cardiovascular disease High cholesterol Diabetes Father Hypertension Cardiovascular disease High cholesterol Social History (Updated 10/12/24 @ 12:16 by Brandi Underwood MA) Household Members: None Both parents involved: No Caregiver staying overnight: No Housing: Apartment Are you a primary career developer to a significant other at home: No Do you presently have visiting nurse or other home services: No 75 years or older and lives alone: No Alcohol intake: never Patient Tobacco Use Status: Never used Tobacco e-Cigarette/Vaping Use: Never Used Second Hand Smoke Exposure: No Substance Use Type: Marijuana Physical Exam There are no Cushingoid features. Absence of blue sclera. Absence of kyphosis. Thyroid gland is of nl size and weighs 15 gms. There are no thyroid nodules palpated. Lungs CTA. Heart S1 S2 Reg R/R Abdominal exam benign. Muscle strength 5/5 . Examination of spine reveals absence of tenderness on palpation Assessment & Plan Assessment & Plan (1) Osteoporosis: Code(s): M81.0 - Age-related osteoporosis without current pathological fracture Category: Medical Qualifiers: Osteoporosis type: age-related Presence of current pathological fracture: without current pathological fracture Qualified Code(s): M81.0 - Age- related osteoporosis without current pathological fracture Plan: This is a 69-year-old white female with a history of osteoporosis previously treated with Reclast 2 years ago with declining bone density. Unclear what extent secondary workup was performed by previous supply chain generalist. We will complete secondary workup by checking TSH, free T4, phosphorus level, 25 hydroxy vitamin-D, 24 hour urine for calcium and creatinine and urine immunofixation. We will ensure 1200 mg of calcium and current vitamin-D supplementation. Assuming secondary workup is negative we will talk with patient about strongly recommending a possible anabolic therapy like Evenity , Tymlos or Forteo to be followed by anti resorptive therapy considering the patient had declined on Reclast in the past and is at very high risk for fracture and anabolic therapy as indicated 1. Osteoporosis Her osteoporosis is critical with a hip T-score of -3.5, requiring further diagnostic workup and calcium intake adjustment to prevent further bone loss. We plan a follow-up in four months post-testing. During the visit, we reviewed the patient's severely low bone density score and the importance of addressing her high fracture risk due to osteoporosis. We discussed the continuation of calcium intake and the completion of blood and urine tests to assess any underlying contributing factors. We elaborated on the differences between bone-stabilizing versus bone-building therapies, emphasizing the need for potentially switching to an anabolic therapy that builds bone density. The patient was informed of multiple available options and pricing and coverage considerations with her insurance. We agreed on a follow-up timeline and recommendations to ensure home safety to prevent falls. Future steps include collaboration with her insurance to facilitate access to needed therapies and re-evaluation of liver and kidney function before further Reclast administration. - Continue taking 1000 IU of Vitamin D3 daily. - Consume 1200 mg of calcium each day, primarily from dietary sources. - Perform the recommended blood and 24-hour urine tests within a month to assess potential secondary causes of osteoporosis. - Maintain good lighting at home and clear pathways to prevent falls. - Continue current therapy for reflux and pain management unless directed otherwise. - Follow up in four months, or sooner if advised by particular test results or symptoms. Take 15 carb carbohydrate grams to treat a low sugar (3-4 glucose tablets, half a glass of juice or 15 carbohydrate grams of soft candy such as gummie snacks). Recheck your sugar in 15 minutes and re-treat again with 15 carbohydrate grams if low or still with symptoms. Do not drive a car or operate machinery if you do not know what your blood sugar is, if it is low or in excess of 300. The patient was counseled to achieve a target A1C of 7% (154 avg). Fasting blood sugars should be 90-130 in the morning and less than 180 two hours after meals. Reviewed the relationship between poor diabetic control and the development of complications. Check your feet daily looking for any signs of infection, drainage, redness, ulceration and seek medical attention if this occurs. Break in shoes gradually and do not wear open-toed shoes or walk stocking footed or barefooted. The patient had an opportunity to ask questions regarding treatment plan. The patient expressed understanding and agreement with the above treatment plan. Patient was informed and verbally consented to the use of an ambient scribe for clinic note documentation during this visit. Orders: Orders Thyroid Stimulating Hormone Today M81.0 - Age-related osteoporosis without current pathological fracture Creatinine, 24 Hr Group Today M81.0 - Age-related osteoporosis without current pathological fracture Phosphorus Today M81.0 - Age-related osteoporosis without current pathological fracture Free T4 (Free Thyroxine) Today M81.0 - Age-related osteoporosis without current pathological fracture Vitamin D 25-OH Total Today M81.0 - Age-related osteoporosis without current pathological fracture Calcium, 24 Hr Ur Today M81.0 - Age-related osteoporosis without current pathological fracture Immunofixation, Random Urine Today M81.0 - Age-related osteoporosis without current pathological fracture Coding Level of Care Code New Pt Level 4 (57468) Diagnoses Age-related osteoporosis without current pathological fracture M81.0 Osteoporosis type: age-related Presence of current pathological fracture: without current pathological fracture
[2025-03-08 08:57] VITALS: BP 134/64; PULSE 65; O2SAT 99; BMI 25.5
--- OUTSIDE RECORDS SUMMARY | 2025-03-08 09:05 | XMS_ITS | Clinical Summary ---
Author Organization [facility] Address [address] [facility] [address] [place] [address] Phone Care Team Providers Care Pvc Monitor Name Role Phone Sade Khalil MD Primary Care Provide r Allergies Active Allergy Reactions Criticality Noted Date Comments Adhesive Tape Other (see comments) 05/29/2023 Influenza Vaccines Hives 05/29/2023 Morphine Itching,Other (see comments) 023 Medications cholecalciferol (VITAMIN D-3) 25 MCG (1000 UT) tablet Take 1,000 Units by mouth in the morning. Active traZODone (DESYREL) 100 MG tablet Take 2 tablets by mouth every night 11/05/2014 Active omeprazole (PriLOSEC) [address] capsule Take 40 mg by mouth 1 (one) time each day 04/05/2023 Active LORazepam (ATIVAN) 0.5 MG tablet Take 0.5 mg by mouth 2 (two) times a day if needed for anxiety Active DULoxetine (Cymbalta) [address] capsule Take 60 mg by mouth 1 (one) time each day 09/11/2018 Active aspirin (ST MIKEY) 81 MG EC tablet Take 81 mg by mouth 1 (one) time each day 04/05/2023 Active atorvastatin (LIPITOR) 40 MG tablet Take 40 mg by mouth 1 (one) time each day 03/07/2023 Active Active Problems Problem Noted Date Diagnosed Date H/O Spinal surgery 03/31/2024 Nephrolithiasis 03/31/2024 Hypertension 03/31/2024 Acute nontraumatic kidney injury, not otherwise specified 03/31/2024 Stage 3a chronic kidney disease 03/31/2024 Other specified renal tubulo-interstitial diseas e 03/31/2024 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 Carotid artery stenosis 04/04/2023 Overview (03/31/2024): moderate right Chronic pain syndrome 04/04/2023 Hypercalcemia 04/04/2023 Osteopenia 04/04/2023 Urinary incontinence 04/04/2023 Resolved Problems Problem Noted Date Diagnosed Date Resolved Date Serum creatinine above reference range 03/31/2024 03/31/2024 Encounters Date Type Department Care Team Description 12/23/2024 2:45 PM EDT Office Visit [facility] [address] [place] [phone] Jassi Moore MD Stage 3 chronic kidney disease, not otherwise specified (HCC) (Primary Dx); Hypertension; Other proteinuria 12/16/2024 Orders Only [facility] [address] [phone] Jassi Moore MD Chronic kidney disease, stage 4 (severe) (HCC) (Primary Dx); Anemia in chronic kidney disease; Hyperkalemia; Hypertension from Last 3 Months Family History Medical History Relation Comments Heart disease Father Heart disease Mother Relation Status Comments Father Mother Social History Tobacco Use Types Packs/Day Years Used Date Smoking Tobacco: Former Cigarettes Q uit: 1989 Smokeless Tobacco: Never Tobacco Cessation:Counseling Given: Not Answered Comments Unknown Sex and Gender Information Value Date Recorded Sex Assigned at Not on file Legal Sex Female 9:13 AM EDT Gender Identity Female 06/24/2024 7:32 AM EDT Sexual Orientation Not on file Last Filed Vital Signs Vital Sign Reading Time Taken Comments Blood Pressure 140/68 12/23/2024 2:31 PM EDT Pulse 77 12/23/2024 2:31 PM EDT Temperature - - Respiratory Rate - - Oxygen Saturation 99% 07/29/2024 1:19 PM EDT Inhaled Oxygen Concentration - - Weight 61.2 kg (135 lb) 12/23/2024 2:31 PM EDT Height 160 cm (5' 3 ) 03/31/2024 8:45 AM EDT Body Mass Index 23.91 03/31/2024 8:45 AM EDT Plan of Treatment Upcoming Encounters Date Type Department Care Team (Late st Contact Info) Description 01/05/2026 1:00 PM EDT Office Visit [facility] [address] [place] [phone] Jassi Moore MD [address] [phone] Health Maintenance Due Date Last Done Comments Breast Cancer Screening 1955 Colorectal Cancer Screening: Annual FOBT 2002 Colorectal Cancer Screening: Colonoscopy 2002 Colorectal Cancer Screening: Sigmoidoscopy 2002 Pneumococcal Vaccine: 50+ Ye ars (2 of 2 - PPSV23, PCV20, or PCV21) 11/06/2018 09/11/2018 Hepatitis B Vaccine Aged Out No longe r eligible based on patient's age to complete this topic Procedures Procedure Name Priority Date/Time Associated Diagnosis Comments PROTEIN / CREATININE RATIO, URINE Routine 12/21/2024 12:16 PM EDT Chronic kidney disease, stage 4 (severe) (HCC) Anemia in chronic kidney disease Hyperkalemia Hypertension FERRITIN Routine 12/21/2024 12:16 PM EDT Chronic kidney disease, stage 4 (severe) (HCC) Anemia in chronic kidney disease Hyperkalemia Hypertension IRON PANEL (FE, TIBC, TSAT) Routine 12/21/2024 12:16 PM EDT Chronic kidney disease, stage 4 (severe) (HCC) Anemia in chronic kidney disease Hyperkalemia Hypertension CBC AND DIFFERENTIAL Routine 12/21/2024 12:16 PM EDT Chronic kidney disease, stage 4 (severe) (HCC) Anemia in chronic kidney disease Hyperkalemia Hypertension RENAL FUNCTION PANEL Routine 12/21/2024 12:16 PM EDT Chronic kidney disease, stage 4 (severe) (HCC) Anemia in chronic kidney disease Hyperkalemia Hypertension from Last 3 Months Results * Iron Panel (Fe, TIBC, TSAT) (12/21/2024 12:16 PM EDT) TIBC 364 250 - 450 ug/dL [facility] UIBC 288 118 - 369 ug/dL [facility] Iron 76 27 - 139 ug/dL [facility] Iron Saturation (TSat) 21 15 - 55 % [facility] Blood specimen (specimen) Venous blood / Unknown 12/21/2024 12:16 PM EDT 12/21/2024 us Jassi Moore MD LAB BLOOD ORDERABLES Final Resul t Performing Organization Address City/[facility] Co de Phone Number [facility] Progression [facility] [address] [place] [address] * (ABNORMAL) Protein, Total, Random Urine w/Creatinine (Protein/Creat Ratio) (12/21/2024 12:16 PM EDT) Pathologist [facility] Creatinine, Ur 95.8 Not Estab. mg/dL [facility] Protein, Ur 56.7 Not Estab. mg/dL [facility] Urine Protein/Creati nine Ratio 592(H) 0 - 200 mg/g creat [facility] Urine specimen (specimen) Urine specimen obtained by clean catch procedure / Unknown 12/21/2024 12:16 PM EDT 12/21/2024 us Jassi Moore MD LAB URINE ORDERABLES Final Resul t Performing Organization Address City/[facility]/ZIP Co de Phone Number [facility] Progression [facility] [address] [place] [address] * (ABNORMAL) CBC and Differential (12/21/2024 12:16 PM EDT) [facility] WBC 6.5 3.4 - 10.8 x10E3/uL [facility] RBC 3.63(L) 3.77 - 5.28 x10E6/uL [facility] Hemoglobin 11.2 11.1 - 15.9 g/dL [facility] Hematocrit 34.6 34.0 - 46.6 % [facility] MCV 95 79 - 97 fL [facility] MCH 30.9 26.6 - 33.0 pg [facility] MCHC 32.4 31.5 - 35.7 g/dL [facility] RDW 14.3 11.7 - 15.4 % [facility] Platelets 305 150 - 450 x10E3/uL [facility] Neutrophils Relative 48 Not Estab. % [facility] Lymphocytes Relative 40 Not Estab. % [facility] Monocytes 10 Not Estab. % [facility] Eosinophils Relative 2 Not Estab. % [facility] Basophils Relative 0 Not Estab. % [facility] Neutrophils Absolute 3.1 1.4 - 7.0 x10E3/uL [facility] Lymphocytes Absolute 2.6 0.7 - 3.1 x10E3/uL [facility] Monocytes Absolute 0.6 0.1 - 0.9 x10E3/uL [facility] Eosinophils Absolute 0.1 0.0 - 0.4 x10E3/uL [facility] Basophils Absolute 0.0 0.0 - 0.2 x10E3/uL [facility] Immature Granulocytes 0 Not Estab. % [facility] Immature Grans (Absolute) 0.0 0.0 - 0.1 x10E3/uL [facility] Blood specimen (specimen) Venous blood / Unknown 12/21/2024 12:16 PM EDT 12/21/2024 us Jassi Moore MD LAB BLOOD ORDERABLES Final Resul t [facility] [address] [place] [address] * Ferritin (12/21/2024 12:16 PM EDT) Pathologist [facility] Ferritin 20 15 - 150 ng/mL [facility] Blood specimen (specimen) Venous blood / Unknown 12/21/2024 12:16 PM EDT 12/21/2024 us Jassi Moore MD LAB BLOOD ORDERABLES Final Resul t Performing Organization Address City/[facility] Co de Phone Number [facility] [address] [place] [address] * (ABNORMAL) Renal Function Panel (12/21/2024 12:16 PM EDT) Glucose 103(H) 70 - 99 mg/dL [facility] BUN 18 8 - 27 mg/dL [facility] Creatinine 1.11(H) 0.57 - 1.00 mg/dL [facility] eGFR CKD-EPI CR 2020 53(L) >59 mL/min/1.7 3 [facility] BUN/Creatinine Ratio 16 12 - 28 [facility] Sodium 138 134 - 144 mmol/L [facility] Potassium 4.8 3.5 - 5.2 mmol/L [facility] Chloride 99 96 - 106 mmol/L [facility] Bicarbonate (CO2) 24 20 - 29 mmol/L [facility] Calcium 9.7 8.7 - 10.3 mg/dL [facility] Albumin 4.0 3.8 - 4.8 g/dL [facility] Phosphorus 3.6 3.0 - 4.3 mg/dL [facility] Blood specimen (specimen) Venous blood / Unknown 12/21/2024 12:16 PM EDT 12/21/2024 Jassi Moore MD LAB BLOOD ORDERABLES Final Resul t [facility] [address] [place] [address] from Last 3 Months Insurance [facility] Medicare Care Teams Pvc Monitor Relationship Specialty Start Date End Date Sade Khalil MD [address] [place] [address] [phone] PCP - General Internal Medicine 07/29/24
== END 2025-03-08 09:45 | disposition home or self-care (01) ==
PROVIDERS: PCP Physician Assistant; Visit Provider Internal Medicine Endocrinology, Diabetes & Metabolism
DX: M81.0 Age-related osteoporosis without current pathological fracture (principal)
CPT/HCPCS: 99204

== ENCOUNTER → 2025-03-08 08:41 | Outpatient (BNVA) | payer MEDICARE, SELFPAY | PROVIDERS: PCP Physician Assistant; Visit Provider Internal Medicine Endocrinology, Diabetes & Metabolism | DX: M81.0 Age-related osteoporosis without current pathological fracture (principal) | CPT/HCPCS: 99202 ==

== ENCOUNTER 2025-03-24 08:45 | Outpatient (REF) | payer MEDICARE, SELFPAY ==
--- OUTSIDE RECORDS SUMMARY | 2025-03-24 09:14 | XMS_ITS | Clinical Summary ---
Author Organization [facility] Address [address] [facility] [address] [place] [address] Phone Care Team Providers Care Senior Scheduler Name Role Phone Sade Khaill MD Primary Care Provide r Allergies Active [...] [facility] Visit [facility] [address] [phone] Jassi Moore MD Stage 3 chronic kidney disease, not otherwise specified (HCC) (Primary Dx); Hypertension; Other proteinuria from Last 3 Months Family History Medical [...] Office Visit [facility] [place] [phone] Jassi Moore MD [address] [phone] Health Maintenance Due Date Last Done Comments Breast Cancer Screening 1955 Colorectal Cancer Screening: Annual FOBT 2002 Colorectal Cancer Screening: Colonoscopy 2002 Colorectal Cancer Screening: Sigmoidoscopy 2002 Pneumococcal Vaccine: 50+ Ye ars (2 of 2 - PPSV23, PCV20, or PCV21) 11/06/2018 09/11/2018 Hepatitis B Vaccine Aged Out No longe r eligible based on patient's age to complete this topic Insurance [facility] Medicare Care Teams Senior Scheduler Relationship Specialty Start Date End Date Sade Khalil MD [address] [place] [phone] PCP - General Internal Medicine 07/29/24
[2025-03-24 10:29] LABS: Phosphorus 3.6 mg/dL (2.7-4.5)
[2025-03-24 10:52] LABS: Free T4 (Free Thyroxine) 0.96 ng/dL (0.71-1.85); Thyroid Stimulating Hormone 4.31 uIU/mL (0.32-4.0); Vitamin D 25-OH Total 27.3 ng/mL (>30)
[2025-03-24 11:26] LABS: Creatinine, mg/dL 27.63
[2025-03-24 11:37] LABS: Creatinine, 24Hr Urine 0.7 G/Day (1.0-2.0); Total Volume 24 Hour Urine 2400 mL
[2025-03-27 05:59] LABS: Calcium, 24 Hr Urine 103 mg/24 h; Calcium/Creatinine Ratio 148 mg/g creat (30-275)
== END 2025-03-24 08:46 | disposition home or self-care (01) ==
LOC: HO.10HDL 08:45
PROVIDERS: Visit Provider Internal Medicine Endocrinology, Diabetes & Metabolism
DX: M81.0 Age-related osteoporosis without current pathological fracture (principal)
CPT/HCPCS: 82306; 82340; 82570; 84100; 84439; 84443; 86335

== ENCOUNTER 2025-06-14 09:20 | Outpatient (AMB) | payer MEDICARE, SELFPAY ==
--- OUTSIDE RECORDS SUMMARY | 2025-06-09 15:42 | XMS_ITS | Encounter Summary ---
Author Organization [facility] Address [address] [place] [address] [place] [phone] Phone Care Team Providers Care Yarn Weight And Strength Tester Name Role Phone Angela David Primary Care Provider Encounter Details Date Type Department Care Team (Latest Contact Info) Description 06/09/2025 3:42 PM EDT - 06/09/2025 11:59 PM EDT Hospital Encounter [address] [address] Claire Mota MD [address] [place] [address] Orthopedics & Sports Medicine, [place] [address] [email or web address] Discharge Disposition: Home or Self Care Social History Tobacco Use Types Packs/Day Years Used Date Smoking Tobacco: Former Cigarettes Smokeless Tobacco: Never Alcohol Use Standard Drinks/Week Comments Not Currently 0 (1 standard drink = 0.6 oz pur e alcohol) rarely Education Answer Date Recorded Are you interested in more education? Not on aurelia e 04/23/2023 Are you concerned about learning? Not on file 04/23/2023 No 04/23/2023 No 04/23/2023 Digital Access Answer Date Recorded No 04/23/2023 No 04/23/2023 Reliable internet access at home? Not on file 04/23/2023 Device with a working camera? Not on file Comments Unknown Sex and Gender Information Value Date Recorded Sex Assigned at Not on file Legal Sex Female 8:55 AM EDT Gender Identity Not on file Sexual Orientation Not on file documented as of this encounter Medications at Time of Discharge ARIPiprazole (ABILIFY) 5 MG tablet Take 1 tablet by mouth daily. 03/14/2023 aspirin 81 MG EC tablet Take 81 mg by mouth daily. atorvastatin (LIPITOR) 40 MG tablet Take 1 tablet by mouth daily. 03/07/2023 cholecalciferol (VITAMIN D3) 25 MCG (1,000 unit) tablet Take 1,000 Units by mouth daily. docusate sodium (STOOL SOFTENER ORAL) Take 2 capsules by mouth nightly at bedtime. DULoxetine (CYMBALTA) 60 MG capsule Take 1 capsule by mouth daily. 03/12/2023 FLUoxetine (PROZAC) 20 MG capsule Take 20 mg by mouth daily. lisinopril (PRINIVIL,ZESTRIL ) 20 MG tablet Take 1 tablet by mouth daily. 03/07/2023 LORazepam (ATIVAN) 0.5 MG tablet Take 0.25 mg by mouth daily as needed for anxiety. omeprazole (PRILOSEC) 40 MG capsule Take 1 capsule by mouth daily. 04/10/2023 documented as of this encounter Plan of Treatment Upcoming Encounters Date Type Department Care Team (Late st Contact Info) Description 08/31/2025 2:30 PM EST Procedure visit [facility] [address] [place] [phone] Claire Mota MD [address] [place] [address] [facility] [place] [address] [email or web address] documented as of this encounter Procedures Procedure Name Priority Date/Time Associated Diagnosis Comments XR HAND 3 OR MORE VIEWS (RIGHT) Routine 06/09/2025 3:53 PM EDT Left hand pain documented in this encounter Results * XR HAND 3 OR MORE VIEWS (RIGHT) (06/09/2025 3:53 PM EDT) Narrative SYSTEMGENERATED, DOCUMENTATION - 06/09/2025 3:53 PM EDT This image report has been auto-finalized and has not been read by a Radiologist. Interpretation has been included in the provider encounter note for this date of service. us Claire Mota MD IMG XR UPPER EXTREMITY Fi nal Result documented in this encounter Visit Diagnoses Diagnosis Left hand pain Pain in soft tissues of limb documented in this encounter Care Teams Yarn Weight And Strength Tester Relationship Specialty Start Date End Date Angela David PA [address] [place] [address] PCP - General Physician Manager News 05/11/25 documented as of this encounter Additional Source Comments The information contained in this document represents components of the legal health record. It is not the complete legal health record.[facility]
--- OUTSIDE RECORDS SUMMARY | 2025-06-09 15:42 | XMS_ITS | Encounter Summary ---
Author Organization [facility] Address [address] [place] [address] [place] [phone] Phone Care Team Providers Care Circuit Court Magistrate Name Role Phone Angela David Primary Care Provider Encounter Details Date Type Department Care Team (Latest Contact Info) Description 06/09/2025 3:42 PM EDT - 06/09/2025 11:59 PM EDT Hospital Encounter [address] [id number] Claire Mota MD [address] [place] [address] Orthopedics & Sports Medicine, [place] [address] [email or web address] Discharge Disposition: Home or Self Care [...] Description 08/31/2025 2:30 PM EST Procedure visit [facility] Orthopedics & Sports Medicine [address] [place] [id number] Claire Mota MD [address] [place] [address] [facility] [place] [address] [email or web address] documented as of this encounter Procedures Procedure Name Priority Date/Time Associated Diagnosis Comments XR HAND 3 OR MORE VIEWS (LEFT) Routine 06/09/2025 3:53 PM EDT Left hand pain documented in this encounter Results * XR HAND 3 OR MORE VIEWS (LEFT) (06/09/2025 3:53 PM EDT) Narrative SYSTEMGENERATED, DOCUMENTATION [...] limb documented in this encounter Care Teams Circuit Court Magistrate Relationship Specialty Start Date End Date Angela David PA [address] [place] [address] PCP - General Physician Application Release Manager 05/11/25 documented as of this encounter Additional Source Comments The information contained in this document represents components of the legal health record. It is not the complete legal health record.[facility]
--- OUTSIDE RECORDS SUMMARY | 2025-06-09 15:45 | XMS_ITS | Encounter Summary ---
Author Organization [facility] Address [address] [place] [phone] Phone Care Team Providers Care Singing Telegram Performer Name Role Phone Angela David Primary Care Provider [phone] Reason for Visit * Reason Comments New Patient B/L Hand * Consultation (Routine) - Closed Specialty Diagnoses / Procedures Referred By Contac t Referred To Contact Diagnoses Trigger finger Angela David PA [address] [place] [phone] Phone: tel: fax: Referral ID Status Reason Start Date Expiration Date Visits Re quested Visits Authorized [id number] Closed 05/10/2025 05/10/2026 1 1 Encounter Details Date Type Department Care Team (Latest Contact Info) Description 06/09/2025 3:45 PM EDT Office Visit [facility] Orthopedics & Sports Medicine [address] [place] [id number] Claire Mota MD [address] [place] [address] Orthopedics & Sports Medicine, [place] [address] [email or web address] CMC DJD(carpometacarpal degenerative joint disease), localized primary, unspecified laterality (Primary Dx); Left hand pain; Bilateral carpal tunnel syndrome Social History Tobacco Use Types Packs/Day Years [...] on file documented as of this encounter Progress Notes * Claire Mota MD - 06/09/2025 3:45 PM EDT History of Present Illness Sheryl Spivey is a 69 year old female with critical osteoporosis and arthritis who presents with hand pain and trigger finger symptoms. She experiences persistent pain in her hands, particularly in the palms, with trigger finger symptoms affecting the middle and ring fingers. Her fingers lock and require manual assistance to open, causing difficulty with gripping and opening objects. She uses Voltaren cream with occasional relief and manages pain with Tylenol or oxycodone due to kidney disease. She has not undergone physical therapy for her hand. He was previously seeing someone down doing orthopedics and has had multiple injections for the CMCarthritis as well as the trigger fingers but has developed a steroid flare. She also had a discussion about CMC arthroplasty but patient that she was not happy with the practice and she felt dismissed and wanted another opinion Symptoms consistent with carpal tunnel syndrome include tingling in her hands, especially in the mornings, which she alleviates by shaking her hands. She wears a brace for her hand and another brace that restricts finger movement. She has not pursued surgical options due to fear. On inspection she has significant large bone of the CMC joint on the right moderate on the left. Loss of full extension and motion with pain on direct palpation. She has swelling at the A1 danae of multiple fingers with active triggering most prominently at the left ring finger no locking noted. No obvious atrophy over the APB. Some weakness with APB activation. Sensation is decreased in the median nerve distribution Imaging hand views bilateral hand views 3 views each ordered taken personally viewed independent interpreted show severe CMC osteoarthritis right greater than left scattered changes in the DIP and PIP joints Assessment and Plan We discussed the multiple overlapping issues with her hands. She has had a significant amount of conservative treatment down in [place] [facility] Osteoarthritis and trigger finger of bilateral hands with associated pain Chronic osteoarthritis and trigger finger in both hands causing significant pain and functional impairment. Previous conservative treatments failed, and surgical intervention is considered due to worsening symptoms. - Refer to Dr. Monterroso for surgical consultation regarding joint replacement and trigger finger release. - Discuss potential surgical options, including arthroplasty, with Dr. Monterroso. - Continue using hand braces as needed for support. Carpal tunnel syndrome of bilateral hands Intermittent numbness and tingling in both hands, consistent with carpal tunnel syndrome. . Currentsymptoms require reevaluation. - Order nerve conduction study to assess the severity of carpal tunnel syndrome. - Schedule follow-up appointment to discuss nerve test results and potential surgical intervention. We discussed having this before discussion with Dr. Monterroso would be helpful and we will schedule her follow-up after nerve testing documented in this encounter Plan of Treatment Upcoming Encounters Date Type Department Care Team (Late st Contact Info) Description 08/31/2025 2:30 PM EST Procedure visit [facility] Orthopedics & Sports Medicine [address] [place] [id number] Claire Mota MD [address] [place] [address] Orthopedics & Sports Medicine, [facility] [place] [address] [email or web address] documented as of this encounter Results * XR HAND 3 OR MORE VIEWS (RIGHT) (06/09/2025 3:53 PM EDT) Narrative SYSTEMGENERATED, DOCUMENTATION - 06/09/2025 3:53 PM EDT This image report has been auto-finalized and has not been read by a Radiologist. Interpretation has been included in the provider encounter note for this date of service. us Claire Mota MD IMG XR UPPER EXTREMITY Fi nal Result * XR HAND 3 OR MORE VIEWS (LEFT) (06/09/2025 3:53 PM EDT) Narrative SYSTEMGENERATED, DOCUMENTATION - 06/09/2025 3:53 PM EDT This image report has been auto-finalized and has not been read by a Radiologist. Interpretation has been included in the provider encounter note for this date of service. Claire Mota MD IMG XR UPPER EXTREMITY Fi nal Result documented in this encounter Visit Diagnoses Diagnosis CMC DJD(carpometacarpal degenerative joint disease), localized primary, unspecified laterality- Primary Left hand pain Pain in soft tissues of limb Bilateral carpal tunnel syndrome Carpal tunnel syndrome Left hand pain Pain in soft tissues of limb Left hand pain Pain in soft tissues of limb documented in this encounter Care Teams Singing Telegram Performer Relationship Specialty Start Date End Date Angela David PA [address] [place] [address] PCP - General Physician Commodity Management Specialist 05/11/25 documented as of this encounter Additional Source Comments The information contained in this document represents components of the legal health record. It is not the complete legal health record.[facility]
--- NOTE | 2025-06-14 09:21 | MHC.OFFVIS ---
Vital Signs 06/14/25 09:25 Height 5 ft 3.39 in Weight 139 lb 8.842 oz BMI 24.4 BP 126/82 Blood Pressure Location Rt brachial Position Sitting Pulse 104 H Pulse Source Pulse Oximeter Pulse Oximetry (%) 99 Oxygen Delivery Method Room Air Intake Visit Reasons: f/u osteoporosis Intake Note: Patient present today for Osteoporosis follow up. Micromatic Hone Operator Required: No Accompanied by: Daughter Allergies morphine Allergy (Severe, Verified 06/14/25 09:26) Itching bandages Allergy (Severe, Uncoded 06/14/25 09:26) Itching flu vaccine Allergy (Severe, Uncoded 06/14/25 09:26) Hives Medication List - Last Reconciled 06/14/25 by Petey Blake MD aspirin 81 mg PO DAILY atorvastatin 40 mg PO DAILY cholecalciferol (vitamin D3) 25 mcg PO DAILY duloxetine 30 mg PO DAILY duloxetine 60 mg PO DAILY lorazepam 1 mg PO BID omeprazole 40 mg PO DAILY oxycodone 5 mg PO BID PRN polysaccharide iron complex (Ferrex) 150 mg PO DAILY rabeprazole 20 mg PO DAILY trazodone 200 mg PO BEDTIME PRN HPI Comments Details: The patient is a 69-year-old female presenting with osteoporosis. She received Reclast in June 2024 and has a hip T-score of -3.5. The patient experienced vertebral fractures requiring four surgeries but denies fractures in other sites. Previous calcium supplementation was discontinued due to concerns of high calcium levels, although current levels appear normal. She was advised to consume 1200 mg of calcium daily through dietary sources and consumes dairy and vegetables rich in calcium. The patient experiences gastroesophageal reflux, previously managed with omeprazole, but is now treated with ropramazole. Menstruation began at age [age] and ended at 40 due to hysterectomy for fibroids. 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 - Reclast (zoledronic acid) - 1 dose in June 2024 for osteoporosis; well-tolerated. - Previous calcium supplements discontinued; no current supplements. - Omeprazole - for gastroesophageal reflux, discontinued. - Ropramazole - current treatment for gastroesophageal reflux. - Baby aspirin - current use; unspecified indication. - Vitamin D3 - 1000 IU daily for supplementation. - Back injections - for chronic back pain; details of medication unspecified. First diagnosed in []. Saw endo at [facility] and given Reclast in 2022 Received treatment in the past with Reclast ,in 2023 . Tolerated treatment well without complication. No history of pathologic fracture or ONJ. Has several servings of dietary calcium per day in the form of cheese, cereal , broccoli . Not Takes Calcium supplement . Takes 1000 IU of Vitamin D daily. took PPI for severe GERD , anticoagulant, antiepileptic or glucocorticoid medication. Not Does weight bearing exercise Fracture history: No Height loss: No VISITOR SERVICES ASSISTANT history: Menarache at age 7 - Menopause partial hysrweectomy at age 40 Has history of Kidney stones: Denies family history of Osteoporosis or hip fracture. UTD on dental cleanings and sees dentist every 6 months. No planned upcoming dental work or extractions. DXA dated []:t- Score of -3.5 in femoral neck 02/03/2025 No tobacco use or heavy ETOH use Labs: Secondary workup showed the presence of MGUS The patient is a 69-year-old female presenting with osteoporosis and monoclonal gammopathy of undetermined significance (MGUS). The patient has been receiving Reclast infusions for osteoporosis management, but recent assessments indicate a decrease in bone density. This decline may be influenced by MGUS, which was identified following the detection of an abnormal protein in the urine. The patient is scheduled to see Dr. Rodriguez for a hematology evaluation to further investigate the MGUS. She maintains her medication regimen, including calcium and vitamin D, and participates in weight-bearing exercises. Home safety measures have been discussed to prevent falls. - Reclast infusion for osteoporosis - Calcium and vitamin D supplementation for bone health rThe patient engages in weight-bearing exercises, including taking out the trash and using light weights, to support bone health. [facility] Medical History (Updated 10/13/24 @ 15:41 by Sharon Mendoza, [facility]) Migraines Anxiety and depression GERD (gastroesophageal reflux disease) Kidney disease Fibromyalgia Neck ache Osteoarthritis Arthritis Hypertension Surgical History Spinal arthrodesis present History of back surgery H/O: hysterectomy H/O section Family History Sister Mental health disorder Maternal Grandfather Cancer Mother Hypertension Cardiovascular disease High cholesterol Diabetes Father Hypertension Cardiovascular disease High cholesterol Social History Household Members: None Both parents involved: No Caregiver staying overnight: No Housing: Apartment Are you a primary director of home care hospice to a significant other at home: No Do you presently have visiting nurse or other home services: No 75 years or older and lives alone: No Alcohol intake: never Patient Tobacco Use Status: Never used Tobacco e-Cigarette/Vaping Use: Never Used Second Hand Smoke Exposure: No Substance Use Type: Marijuana Physical Exam Vital Signs: Last Vital Signs Pulse 104 H 06/14/25 09:25 BP 126/82 06/14/25 09:25 Pulse Ox 99 06/14/25 09:25 Oxygen Delivery Method Room Air 06/14/25 09:25 BMI result Body Mass Index 24.4 Assessment & Plan Assessment & Plan (1) Osteoporosis: Code(s): M81.0 - Age-related osteoporosis without current pathological fracture Category: Medical Qualifiers: Osteoporosis type: age-related Presence of current pathological fracture: without current pathological fracture Qualified Code(s): M81.0 - Age-related osteoporosis without current pathological fracture Plan: This is a 69-year-old white female with a history of osteoporosis previously treated with Reclast 2 years ago with declining bone density. Unclear what extent secondary workup was performed by previous remote control assembler. Secondary workup showed the presence of MGUS 1. Monoclonal Gammopathy of Undetermined Significance (MGUS) The patient is scheduled for a hematology evaluation with Dr. Rodriguez to monitor the condition and rule out progression to multiple myeloma. Further osteoporosis treatment will be deferred until after this evaluation. After above, consideration could be given to the use of another dose of Reclast 2. Osteoporosis The patient will continue with calcium and vitamin D supplementation and weight-bearing exercises. Reclast infusions will be reconsidered post-hematology evaluation. I discussed with the patient the presence of monoclonal gammopathy of undetermined significance (MGUS) and its potential implications, including the need for hematology evaluation to rule out progression to multiple myeloma. We agreed that further osteoporosis treatment should be deferred until after the hematology consultation. I emphasized the importance of continuing calcium and vitamin D supplementation and engaging in weight-bearing exercises. The patient was advised to ensure home safety to prevent falls. Follow-up with hematology and subsequent reassessment of osteoporosis management were planned. - Follow up with Dr. Rodriguez for hematology evaluation on July 27. - Continue taking calcium and vitamin D supplements as prescribed. - Engage in weight-bearing exercises, such as taking out the trash and using light weights. - The patient had an opportunity to ask questions regarding treatment plan. The patient expressed understanding and agreement with the above treatment plan. Patient was informed and verbally consented to the use of an ambient scribe for clinic note documentation during this visit. Coding Level of Care Code Est Pt Level 3 (68739) Diagnoses Age-related osteoporosis without current pathological fracture M81.0 Osteoporosis type: age-related Presence of current pathological fracture: without current pathological fracture
[2025-06-14 09:25] VITALS: BP 126/82; PULSE 104; O2SAT 99; BMI 24.4
--- OUTSIDE RECORDS SUMMARY | 2025-06-14 10:30 | XMS_ITS | Clinical Summary ---
Author Organization [facility] Address [address] [place] [address] Care Team Providers Care Student Success Coach Name Role Phone Robyn Khalil MD Primary Care Provider Allergies Active Allergy Reactions Criticality Noted Date Comments Influenza Vaccines Hives Medium 05/29/2023 Morphine Itching,Other (See Comments) Low 023 Medications aspirin enteric coated 81 MG EC tablet Take 81 mg by mouth. Active atorvastatin (LIPITOR) 40 MG tablet Take 40 mg by mouth. Active Azelastine HCl 137 MCG/SPRAY nasal spray USE 1 SPRAY IN EACH NOSTRILTWICE DAILY NEEDED FOR ALLERGY SYMPTOMS. 5 Active DULoxetine (CYMBALTA) 60 MG capsule Take 60 mg by mouth. 5 Active Xyzal Allergy 24HR 5 MG tablet Take 2.5 mg by mouth. 5 Active Lyrica 75 MG capsule Take 75 mg by mouth. 5 Active OMEprazole (PriLOSEC) 40 MG capsule Take 1 capsule by mouth. 5 Active RABEprazole (ACIPHEX) 20 MG tablet Take 20 mg by mouth. Active rOPINIRole (REQUIP) 0.25 MG tablet Take 0.25 mg by mouth. 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 04/20/2025 History of COVID-19 04/20/2025 Osteoarthritis 04/20/2025 Migraine 04/20/2025 Left bundle branch block (LBBB) 04/20/2025 Kidney disease 04/20/2025 Irritable bowel 04/20/2025 Hyperlipidemia 04/20/2025 Polyp of colon 04/20/2025 Posttraumatic stress disorder 04/20/2025 Overview (04/20/2025): per pt Prediabetes 04/20/2025 Pulmonary nodules 04/20/2025 Chest pain 04/20/2025 Right-sided back pain 04/20/2025 Rosacea 04/20/2025 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 H/O Spinal surgery 03/31/2024 Acute nontraumatic kidney injury 03/31/2024 Hypertension 03/31/2024 Other specified renal tubulo-interstitial diseas es 03/31/2024 Carotid artery stenosis 04/04/2023 Overview (04/20/2025): moderate right Chronic pain disorder 04/04/2023 Osteopenia 04/04/2023 Hypercalcemia 04/04/2023 Urinary incontinence 04/04/2023 Encounters Date Type Department Care Team Description 04/21/2025 10:30 AM EDT Clinical Support [facility] [address], [place] [address] Onelia Castillo Au.D Otalgia of both ears (Primary Dx); Sensorineural hearing loss, bilateral 04/20/2025 9:30 AM EDT Office Visit [facility] [address], [place] [address] Emil Espitia MD Otalgia of both ears (Primary Dx); Abnormal auditory perception of both ears from Last 3 Months Immunizations Immunization Administration Dates Next Due Influenza Virus Trivalent Sp lit Vaccine (MDV) IM 07/09/2022,06/20/2021,06/09/2020,2018,07/04/2018,07/17/2017,07/18/2016,1 ,07/09/2014,08/26/2013, 012,06/30/2012,07/13/2011,07/14/2010, Influenza Whole 11/24/2009,08/26/2008,07/23/2007 Pneumococcal Conjugate 13-Valent 09/11/2018 Pneumococcal Conjugate 20-Valent 07/23/2023 RSV, Recombinant, Protein Lira bunit RSV Prefusion F (AREXVY), Adjuvant Recon 0.5 mL PF 07/23/2023 Td, Unspecified 02/04/2003 Tdap 03/04/2014 Zoster Vaccine Live/Attenuat ed (Zostavax) 08/26/2013 Social History Tobacco Use Types Packs/Day Years Used Date Smoking Tobacco: Never Passive Smoke Exposure: Never Smokeless Tobacco: Never Alcohol Use Standard Drinks/Week Comments Not Currently 0 (1 standard drink = 0.6 oz pur e alcohol) Comments Unknown Sex and Gender Information Value Date Recorded Sex Assigned at Not on file Legal Sex Female 11:23 AM EDT Gender Identity Female 04/20/2025 10:05 AM EDT Sexual Orientation Heterosexual (straight) 04/20 10:05 AM EDT Last Filed Vital Signs Vital Sign Reading Time Taken Comments Blood Pressure - - Pulse - - Temperature - - Respiratory Rate - - Oxygen Saturation - - Inhaled Oxygen Concentration - - Weight 64.9 kg (143 lb) 04/20/2025 9:03 AM EDT Height 160 cm (5' 3 ) 04/20/2025 9:03 AM EDT Body Mass Index 25.33 04/20/2025 9:03 AM EDT Plan of Treatment Health Maintenance Due Date Last Done Comments Advance Care Planning 1955 Hepatitis C Virus Screening 1955 Mammogram 1993 Colonoscopy 1998 Zoster (Shingles) Vaccine (2 of 3) 10/21/2013 08/26/2013 DXA Bone Density (Females,Ages 65 and older) 2018 DTaP/Tdap/Td Vaccines (2 - Td or Tdap) 03/04/2024 03/04/2014, 02/04/2003 COVID-19 Vaccine ( season) 2024 08/27/2021, 01/05/2021, 12/08/2020 Influenza Vaccine 05/07/2025 07/09/2022, , 06/09/2020, Additional history exists Pneumococcal Vaccines 50+ Completed 07/23/2023, 03/2018 RSV Vaccine 60 years and older and Patients Completed 07/23/2023 Hepatitis B Vaccines Aged Out No long er eligible based on patient's age to complete this topic Procedures Procedure Name Priority Date/Time Associated Diagnosis Comments BASIC COMPREHENSIVE AU Routine 10:30 AM EDT Sensorineural hearing loss, bilateral Otalgia of both ears from Last 3 Months Results * BASIC COMPREHENSIVE AU (04/21/2025 10:30 AM EDT) Narrative Onelia Castillo Au.D - 04/21/2025 10:30 AM EDT Sammy Allen 04/21/2025 10:52 AM Emil Espitia MD AMB ORDERABLE PERFORMABLE Fin al Result from Last 3 Months Insurance MEDICARE PART A & B [place] [id number] Care Teams Student Success Coach Relationship Specialty Start Date End Date Robyn Khalil MD [address] [place] [id number] PCP - General Internal Medicine 04/20/25
--- OUTSIDE RECORDS SUMMARY | 2025-06-14 10:30 | XMS_ITS | Clinical Summary ---
Author Organization [facility] Address [address] [address] Phone Care Team Providers Care Assembly Associate Name Role Phone Angela David Primary Care Provider Allergies Active Allergy Reactions Criticality Noted Date Comments Adhesive 05/29/2023 Influenza Virus Vaccines Hives 05/29/2023 Morphine Itching 05/29/2023 Medications ARIPiprazole (ABILIFY) 5 MG tablet Take 1 tablet by mouth daily. 03/14/2023 Active atorvastatin (LIPITOR) 40 MG tablet Take 1 tablet by mouth daily. 03/07/2023 Active DULoxetine (CYMBALTA) 60 MG capsule Take 1 capsule by mouth daily. 03/12/2023 Active lisinopril (PRINIVIL,ZESTR IL) 20 MG tablet Take 1 tablet by mouth daily. 03/07/2023 Active omeprazole (PRILOSEC) 40 MG capsule Take 1 capsule by mouth daily. 04/10/2023 Active FLUoxetine (PROZAC) 20 MG capsule Take 20 mg by mouth daily. Active aspirin 81 MG EC tablet Take 81 mg by mouth daily. Active LORazepam (ATIVAN) 0.5 MG tablet Take 0.25 mg by mouth daily as needed for anxiety. Active docusate sodium (STOOL SOFTENER ORAL) Take 2 capsules by mouth nightly at bedtime. Active cholecalciferol (VITAMIN D3) 25 MCG (1,000 unit) tablet Take 1,000 Units by mouth daily. Active Encounters Date Type Department Care Team Description 06/09/2025 3:45 PM EDT Office Visit [facility] Orthopedics & Sports Medicine [address] [place] [address] Claire Mota MD [facility] DJD(carpometacarpal degenerative joint disease), localized primary, unspecified laterality (Primary Dx); Left hand pain; Bilateral carpal tunnel syndrome 06/09/2025 3:42 PM EDT - 06/09/2025 11:59 PM EDT Hospital Encounter [address] [address] Claire Mota MD Discharge Disposition: Home or Self Care 06/09/2025 3:42 PM EDT - 06/09/2025 11:59 PM EDT Hospital Encounter [address] [address] Claire Mota MD Discharge Disposition: Home or Self Care 05/10/2025 Transcribe Orders [facility] Neurology [address] [place] [address] Elisabet Galicia MA Trigger finger (Primary Dx) from Last 3 Months Social History Tobacco Use Types Packs/Day Years [...] on file Sexual Orientation Not on file Last Filed Vital Signs Vital Sign Reading Time Taken Comments Blood Pressure 112/68 05/29/2023 9:02 AM EDT Pulse - - Temperature - - Respiratory Rate - - Oxygen Saturation - - Inhaled Oxygen Concentration - - Weight 64 kg (141 lb) 05/29/2023 9:02 AM EDT Height 160 cm (5' 3 ) 05/29/2023 9:02 AM EDT Body Mass Index 24.98 05/29/2023 9:02 AM EDT Plan of Treatment Upcoming Encounters Date Type Department Care Team (Late st Contact Info) Description 08/31/2025 2:30 PM EST Procedure visit [facility]ics [facility] Sports Medicine [address] [place] [id number] Claire Mota MD [address] [place] [address] Orthopedics & Sports Medicine, [facility] [place] [address] [email or web address] Health Maintenance Due Date Last Done Comments CREATININE LEVEL 1953 LIPID PANEL 1953 POTASSIUM LEVEL 1953 DEPRESSION SCREENING 1965 SMOKING Hx and SMOKELESS TOBACCO SCREENING 1966 HEPATITIS C SCREENING 1971 MAMMOGRAM 1993 COLOGUARD 1998 COLONOSCOPY 1998 COLORECTAL CANCER SCREENING 1998 FIT TEST 1998 FOBT 1998 SIGMOIDOSCOPY 1998 VIRTUAL COLONOSCOPY 1998 ZOSTER VACCINES (1 of 2) 2003 OSTEOPOROSIS SCREENING INITI AL (ONE-TIME) 2018 Adult Td,Tdap Booster 03/04/2024 03/04/2014 COVID-19 VACCINE (2024-2 6 season) 2025 08/27/2021, 01/05/2021, 12/08/2020 PNEUMOCOCCAL VACCINES (50+ years) Completed 07/23/2023 RSV VACCINE Completed 07/23/2023 HEPATITIS A VACCINES Aged Out No long er eligible based on patient's age to complete this topic HIB VACCINES Aged Out No longer eligi ble based on patient's age to complete this topic MENINGOCOCCAL VACCINES (ACWY) Aged Out No longer eligible based on patient's age to complete this topic MENINGOCOCCAL VACCINES (B) Aged Out N o longer eligible based on patient's age to complete this topic Medical Devices Not on file Procedures Procedure Name Priority Date/Time Associated Diagnosis Comments XR HAND 3 OR MORE VIEWS (RIGHT) Routine 06/09/2025 3:53 PM EDT Left hand pain XR HAND 3 OR MORE VIEWS (LEFT) Routine 06/09/2025 3:53 PM EDT Left hand pain from Last 3 Months Results * XR HAND 3 OR MORE VIEWS (RIGHT) (06/09/2025 3:53 PM EDT) Narrative SYSTEMGENERATED, DOCUMENTATION - 06/09/2025 3:53 PM EDT This image report has been auto-finalized and has not been read by a Radiologist. Interpretation has been included in the provider encounter note for this date of service. us Claire Mota MD [facility] XR UPPER EXTREMITY Fi nal Result * XR HAND 3 OR MORE VIEWS (LEFT) (06/09/2025 3:53 PM EDT) Narrative SYSTEMGENERATED, DOCUMENTATION - 06/09/2025 3:53 PM EDT This image report has been auto-finalized and has not been read by a Radiologist. Interpretation has been included in the provider encounter note for this date of service. us Claire MAYER XR UPPER EXTREMITY Fi nal Result from Last 3 Months Insurance [employer] MEDEX SUPPLEMENT MEDICARE PART A & B [employer] [place] MEDEX SUPPLEMENT MEDICARE PART A & B [employer] [place] MEDEX SUPPLEMENT MEDICARE PART A & B [employer] [place] MEDEX SUPPLEMENT MEDICARE PART A & B [employer] [place] MEDEX SUPPLEMENT MEDICARE PART A & B MEDICARE PART A & B Care Teams Assembly Associate Relationship Specialty Start Date End Date Angela David PA [address] [place] [address] PCP - General Physician Vba Developer 05/11/25 Additional Source Comments The information contained in this document represents components of the legal health record. It is not the complete legal health record.[facility]
--- OUTSIDE RECORDS SUMMARY | 2025-06-14 10:30 | XMS_ITS ---
Author Name [facility] Organization Unknown History of Medication Use Medication Directions Dispensed Refills Start Date End Date Stat us DULoxetine (CYMBALTA) 60 MG capsule Take 60 mg by mouth. 03/19/2025 acti ve Azelastine HCl 137 MCG/SPRAY nasal spray USE 1 SPRAY IN EACH NOSTRILTWICE DAILY NEEDED FOR ALLERGY SYMPTOMS. 03/17/2025 active Lyrica 75 MG capsule Take 75 mg by mouth. 2024 active Xyzal Allergy 24HR 5 MG tablet Take 2.5 mg by mouth. 03/17/2025 active rOPINIRole (REQUIP) 0.25 MG tablet Take 0.25 mg by mouth. 02/12/2025 active OMEprazole (PriLOSEC) 40 MG capsule Take 1 capsule by mouth. 11/30/2024 active aspirin enteric coated 81 MG EC tablet Take 81 mg by mouth. acti ve atorvastatin (LIPITOR) 40 MG tablet Take 40 mg by mouth. acti ve RABEprazole (ACIPHEX) 20 MG tablet Take 20 mg by mouth. acti ve Allergies Allergen Reaction Severity Comment Documented Date Source Statu s INFLUENZA VACCINES HIVES 05/29/2023 [facility] ac tive MORPHINE OTHER (SEE COMMENTS) 05/29/2023 [facility] active Problems Problem Status Onset Date Problem Type Date of Resolution Source Otalgia of both ears active EncounterDiagnosisA ct [facility] Sensorineural hearing loss, bilateral active EncounterDiagnosisAct [facility] Immunizations Vaccine Date Source Lot Number Status Pneumococcal Conjugate 20-Valent 07/23/2023 [facility] [id number] completed RSV, Recombinant, Protein Lira bunit RSV Prefusion F (AREXVY), Adjuvant Recon 0.5 mL PF 07/23/2023 CCT 3 2S4C completed Influenza Virus Trivalent Sp lit Vaccine (MDV) IM 07/09/2022 [facility] [id number] completed Influenza Virus Trivalent Sp lit Vaccine (MDV) IM 06/20/2021 [facility] [id number] completed Influenza Virus Trivalent Sp lit Vaccine (MDV) IM 06/09/2020 [facility] UNK completed Influenza Virus Trivalent Sp lit Vaccine (MDV) IM 06/23/2019 [facility] UNK completed Pneumococcal Conjugate 13-Valent 09/11/2018 [facility] [id number] completed Influenza Virus Trivalent Sp lit Vaccine (MDV) IM 07/04/2018 [facility] UNK completed Influenza Virus Trivalent Sp lit Vaccine (MDV) IM 07/17/2017 [facility] UNK completed Influenza Virus Trivalent Sp lit Vaccine (MDV) IM 07/18/2016 [facility] [id number] completed Influenza Virus Trivalent Sp lit Vaccine (MDV) IM 07/12/2015 [facility] UNK completed Influenza Virus Trivalent Sp lit Vaccine (MDV) IM 07/09/2014 [facility] UNK completed Tdap 03/04/2014 [facility] [id number] completed Influenza Virus Trivalent Sp lit Vaccine (MDV) IM 08/26/2013 [facility] UNK completed Zoster Vaccine Live/Attenuated (Zostavax) 08/26/2013 [facility] UNK completed Influenza Virus Trivalent Sp lit Vaccine (MDV) IM 08/07/2012 [facility] UNK completed Influenza Virus Trivalent Sp lit Vaccine (MDV) IM 06/30/2012 [facility] [id number] completed Influenza Virus Trivalent Sp lit Vaccine (MDV) IM 07/13/2011 [facility] UNK completed Influenza Virus Trivalent Sp lit Vaccine (MDV) IM 07/14/2010 [facility] [id number] completed Influenza Whole 11/24/2009 [facility] [id number] completed Influenza Virus Trivalent Sp lit Vaccine (MDV) IM 06/30/2009 [facility] [id number] completed Influenza Whole 08/26/2008 [facility] [id number] completed Influenza Whole 07/23/2007 [facility] [id number] completed Td, Unspecified 02/04/2003 [facility] UNK completed Encounters Encounter Type Encounter Reason Primary Diagnosis Location Date Ambulatory Otalgia, bilateral Otalgia, bilateral [facility] 04/21/2025 Ambulatory Otalgia Otalgia [place] [facility] [employer] 04/20/2025 Care Team Organization Name Specialty Phone Email Start Date End Da te [place] [facility] Sade Khalil Primary Care 04/20/2025 05/20/2025 [employer] Sade Khalil Primary Care 04/20/2025 [employer] 02/01/2025
--- OUTSIDE RECORDS SUMMARY | 2025-06-14 10:30 | XMS_ITS | Clinical Summary ---
Author Organization [facility] Address [address] [facility] [address] [place] [address] Phone Care Team Providers Care Costing Manager Name Role Phone Sade Khalil MD Primary [...] Serum creatinine above reference range 03/31/2024 03/31/2024 Family History Medical History Relation Comments Heart [...] Visit [facility] [address] [place] [address] Jassi Moore MD [address] [address] Health Maintenance Due Date Last Done Comments Breast Cancer Screening 1955 Colorectal Cancer Screening: Annual FOBT 2002 Colorectal Cancer Screening: Colonoscopy 2002 Colorectal Cancer Screening: Sigmoidoscopy 2002 Pneumococcal Vaccine: 50+ Ye ars (2 of 2 - PPSV23, PCV20, or PCV21) 11/06/2018 09/11/2018 Hepatitis B Vaccine Aged Out No longe r eligible based on patient's age to complete this topic Insurance Medicare Care Teams Costing Manager Relationship Specialty Start Date End Date Sade Khalil MD [address] [place] [phone] PCP - General Internal Medicine 07/29/24
== END 2025-06-14 09:44 | disposition home or self-care (01) ==
LOC: HO.ENCR 09:21
PROVIDERS: PCP Physician Assistant; Visit Provider Internal Medicine Endocrinology, Diabetes & Metabolism
DX: M81.0 Age-related osteoporosis without current pathological fracture (principal)
CPT/HCPCS: 99213

== ENCOUNTER → 2025-06-14 09:20 | Outpatient (BNVA) | payer MEDICARE, SELFPAY | PROVIDERS: PCP Physician Assistant; Visit Provider Internal Medicine Endocrinology, Diabetes & Metabolism | DX: M81.0 Age-related osteoporosis without current pathological fracture (principal) | CPT/HCPCS: 99212 ==

== ENCOUNTER 2025-06-21 09:12 | Outpatient (AMB) | payer MEDICARE, SELFPAY ==
--- NOTE | 2025-06-21 09:17 | MHC.OFFVIS ---
Vital Signs 06/21/25 09:22 Height 5 ft 3 in Weight 145 lb BMI 25.7 BP 135/69 Blood Pressure Location Rt brachial Position Sitting Pulse 93 Pulse Source Pulse Oximeter Pulse Oximetry (%) 96 Oxygen Delivery Method Room Air Intake Visit Reasons: LUMBAR RADICULOPATHY Intake Note: Pain today 06/16 Technical Support Representative Required: No Accompanied by: Self / Same As Patient Allergies morphine Allergy (Severe, Verified 06/21/25 09:25) Itching bandages Allergy (Severe, Uncoded 06/14/25 09:26) Itching flu vaccine Allergy (Severe, Uncoded 06/14/25 09:26) Hives HPI Comments Details: The patient is a 69-year-old female presenting with lumbar radiculopathy and associated back pain. The patient reports that the third and fourth vertebrae in her back collapsed in October 2024, leading to compression and pain radiating to her legs. She is scheduled for an MRI this week to further evaluate the condition. The patient has a history of osteoporosis, which contributes to her risk of fractures. She is under the care of an Driver Starting Gate for this condition. 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 She is seeking a second opinion from a Hand specialist before proceeding with surgery. The patient has a history of carpal tunnel syndrome, which she believes affects both hands. Her medical history includes chronic kidney disease, heart disease, hyperlipidemia, and prediabetes. She has previously been treated with numerous steroid injections for back pain, which she believes may have contributed to her osteoporosis. Patient has trialed multiple medications in the past for pain management, including gabapentin, pregabalin, oxycodone, duloxetine with persistent symptoms. - Pain onset: Chronic pain, worsening since October 2024, following vertebral collapse - Quality: Dull, sore, hurting, achy, heavy, sharp, radiating - Primary location: Lower back - Radiation: To both groins, anterior thighs, knees, and occasionally left calf - Exacerbating factors: Movement, weather changes, walking, sitting, lifting - Relieving factors: Use of lumbar spinal cord stimulator ([employer] system), resting, oxycodone - Interference: Affects sleep, requires medication for sleep - Affect: Pain impacts mood and psychological wellbeing, requiring psychiatric support, sees Dr. Joaquin - Analgesia: Current medications include pregabalin, gabapentin, and occasional oxycodone; pain rated 6/10 in the morning and 8/10 in the afternoon - Adverse Effects: Previous steroid injections may have contributed to osteoporosis - Activities of Daily Living: Pain affects daily activities, requiring use of a cane - Aberrant Drug Related Behaviors: History of fentanyl addiction, currently managed with psychiatric support Oswestry Low Back Pain Disability Score=28 PFSH Medical History (Updated 06/21/25 @ 12:39 by MARQUISE Morris) Migraines Anxiety and depression GERD (gastroesophageal reflux disease) Kidney disease Fibromyalgia Neck ache Osteoarthritis Arthritis Hypertension Surgical History Spinal arthrodesis present History of back surgery H/O: hysterectomy H/O section Family History Sister Mental health disorder Maternal Grandfather Cancer Mother Hypertension Cardiovascular disease High cholesterol Diabetes Father Hypertension Cardiovascular disease High cholesterol Social History Household Members: None Both parents involved: No Caregiver staying overnight: No Housing: Apartment Are you a primary healthcare administration internship to a significant other at home: No Do you presently have visiting nurse or other home services: No 75 years or older and lives alone: No Alcohol intake: never Patient Tobacco Use Status: Never used Tobacco e-Cigarette/Vaping Use: Never Used Second Hand Smoke Exposure: No Substance Use Type: Marijuana Review of Systems Const Details: - Musculoskeletal: Reports pain in lower back radiating to groins, thighs, and calf; denies midline back pain - Neurological: Reports occasional shocks in left calf; denies numbness or tingling; denies bladder or bowel dysfunction or saddle anesthesia All systems reviewed & are unremarkable except as noted in HPI and below Physical Exam Vital Signs: Last Vital Signs Pulse 93 06/21/25 09:22 BP 135/69 06/21/25 09:22 Pulse Ox 96 06/21/25 09:22 Oxygen Delivery Method Room Air 06/21/25 09:22 BMI result Body Mass Index 25.7 General: Appears afebrile. Alert and oriented. Mood and affect appropriate. Follows and participates in conversation appropriately. Respiratory effort is unlabored. No cough. Able to transition from sit to stand unassisted. Ambulates with bilaterally normal heel strike and toe off. General: Yes no CVA tenderness Back/Spine/Pelvis Other: Limited lumbar ROM due to pain. No midline tenderness in cervical, thoracic or lumbar spine. Lumbar extension 5-10 degrees reproduces moderate to severe pain, flexion causes moderate pain and is limited to 60-65 degrees. Demonstrates 5/5 strength of quadriceps bilaterally as well as flexion/dorsiflexion of bilateral feet against resistance. 2+ pedal pulses bilaterally. Straight leg rise with dorsiflexion negative bilaterally. +1 patellar and achilles reflexes bilaterally. Facet loading test positive bilaterally. Juaquin sign, Abel?s, Pelvic compression, Gaenslen and Stinchfield tests positive on the right. Mild groin pain with I/E hip rotations. Valsalva maneuver negative. Well-healed scars from previous lumbar fusion and SCS implantation surgeries, non-tender battery site in left upper buttock. Back: no CVA tenderness Cervical Spine: loss of normal cervical lordosis, cervical muscular tenderness, pain with cervical ROM, No Cervical spine tenderness and No step off deformity Thoracic/Lumbar Spine: thoracic and lumbar spine normal to inspection, Thoracic/lumbar spine scar(s), Lasegue's sign negative, straight leg raise negative bilaterally, pain with thoraco-lumbar ROM, paraspinal muscle tenderness, thoraco-lumbar ROM limited, No thoracic spinal tenderness and No lumbar spinal tenderness Sacroiliac joints: on the right tender to palpation and on the left nontender Extrem General: Yes capillary refill normal, Yes no clubbing, cyanosis or edema and Yes no calf tenderness Results Reviewed Results Reviewed: No imaging reports are available for review today. Assessment & Plan Assessment & Plan (1) Osteoarthritis of hands, bilateral: Code(s): M19.041 - Primary osteoarthritis, right hand; M19.042 - Primary osteoarthritis, left hand Category: Medical Qualifiers: Osteoarthritis type: primary Qualified Code(s): M19.041 - Primary osteoarthritis, right hand; M19.042 - Primary osteoarthritis, left hand (2) Osteoarthritis of first carpometacarpal joint of right hand: Code(s): M18.11 - Unilateral primary osteoarthritis of first carpometacarpal joint, right hand Category: Medical (3) Failed back syndrome: Code(s): M96.1 - Postlaminectomy syndrome, not elsewhere classified Category: Medical (4) Fibromyalgia: Code(s): M79.7 - Fibromyalgia Category: Medical (5) History of compression fracture of spine: Code(s): Z87.81 - Personal history of (healed) traumatic fracture Category: Medical (6) Lumbar radiculopathy: Code(s): M54.16 - Radiculopathy, lumbar region Category: Medical Plan The patient will undergo a scheduled lumbar spine MRI on 06/23/25 at [facility] to assess the extent of vertebral compression and potential nerve involvement. Will consider a dedicated hip x-ray with pelvic view to rule out other causes of bilateral hip and groin pain. The patient will be referred to a Hand specialist for evaluation of basal joint arthritis and potential surgical intervention. Pain management will continue with current medications, and the patient will be advised to use the [employer] spinal cord stimulator as needed. All questions and concerns have been answered and patient agreed with the treatment plan. Follow up for MRI results and sooner as needed. Patient was informed and verbally consented to the use of an ambient scribe for clinic note documentation during this visit. Orders: Referrals Hand Surgery Referral M18.11 - Unilateral primary osteoarthritis of first carpometacarpal joint, right hand, M19.041 - Primary osteoarthritis, right hand, M19.042 - Primary osteoarthritis, left hand Coding Level of Care Code New Pt Level 4 (65321) Diagnoses Primary osteoarthritis of both hands M19.041; M19.042 Osteoarthritis type: primary Osteoarthritis of first carpometacarpal joint of right hand M18.11 Failed back syndrome M96.1 Fibromyalgia M79.7 History of compression fracture of spine Z87.81 Lumbar radiculopathy M54.16
[2025-06-21 09:22] VITALS: BP 135/69; PULSE 93; O2SAT 96; BMI 25.7
--- OUTSIDE RECORDS SUMMARY | 2025-06-21 10:50 | XMS_ITS | Clinical Summary ---
Author Organization [facility] Address [address] [place] [address] Care Team Providers Care Professor Of Law Name Role Phone Robyn Khalil MD Primary [...] Description 04/21/2025 10:30 AM EDT Clinical Support [facility] [address], [place] [address] Onelia Castillo Au.D Otalgia of both ears (Primary Dx); Sensorineural hearing loss, bilateral 04/20/2025 9:30 AM EDT Office Visit [facility] [address], [place] [address] Emil Espitia MD Otalgia of [...] - Td or Tdap) 03/04/2024 03/04/2014, 02/04/2003 Influenza Vaccine 05/07/2025 07/09/2022, , 06/09/2020, Additional history exists COVID-19 Vaccine ( season) 2025 08/27/2021, 01/05/2021, 12/08/2020 Pneumococcal Vaccines 50+ Completed 07/23/2023, 03/2018 RSV [...] Months Insurance MEDICARE PART A & [place] [id number] Care Teams Professor Of Law Relationship Specialty Start Date End Date Robyn Khalil MD [address] [place] [phone] PCP - General Internal Medicine 04/20/25
--- OUTSIDE RECORDS SUMMARY | 2025-06-21 10:50 | XMS_ITS | Clinical Summary ---
Author Organization [facility] Address [address] [address] Phone Care Team Providers Care Hairspring Inspector Name Role Phone Angela David Primary Care [...] Description 06/09/2025 3:45 PM EDT Office Visit [facility] Orth[facility] & Sports Medicine [address] [place] [address] Claire Mota MD [facility] DJD(carpometacarpal degenerative joint disease), localized primary, unspecified laterality (Primary Dx); Left hand pain; Bilateral carpal tunnel syndrome 06/09/2025 3:42 PM EDT - 06/09/2025 11:59 PM EDT Hospital Encounter [address] [address] Claire Mota MD Discharge Disposition: Home or Self Care 06/09/2025 3:42 PM EDT - 06/09/2025 11:59 PM EDT Hospital Encounter [address] [address] Claire Mota MD Discharge Disposition: Home or Self Care 05/10/2025 Transcribe Orders [facility] Neurology [address] [place] [address] Elisabet Galicia MA Trigger finger (Primary Dx) [...] Description 08/31/2025 2:30 PM EST Procedure visit [facility] Medicine [address] [place] [address] Claire Mota MD [address] [place] [address] Orthopedics & Sports Medicine, [facility] [place] [address] [email or web address] Health Maintenance Due Date Last Done [...] date of service. us Claire Mota MD [facility] XR UPPER EXTREMITY Fi nal Result * [...] nal Result from Last 3 Months Insurance [employer] MEDEX SUPPLEMENT MEDICARE PART A & B [employer] MEDEX SUPPLEMENT MEDICARE PART A & B [employer] SUPPLEMENT MEDICARE PART A & B [employer] SUPPLEMENT MEDICARE PART A & B [employer] SUPPLEMENT MEDICARE PART A & B MEDICARE PART A & B Care Teams Hairspring Inspector Relationship Specialty Start Date End Date Angela David PA [address] [place] [address] PCP - General Physician Administration Intern 05/11/25 Additional Source Comments The information contained in this document represents components of the legal health record. It is not the complete legal health record.[facility]
--- OUTSIDE RECORDS SUMMARY | 2025-06-21 10:50 | XMS_ITS | Clinical Summary ---
Author Organization [facility] Address [address] [facility] [address] [place] [address] Phone Care Team Providers Care Business Asst Name Role Phone Sade Khalil MD Primary [...] [facility] [address] [place] [address] Jassi Moore MD [address] [address] Health Maintenance Due Date Last [...] complete this topic Insurance Medicare Care Teams Business Asst Relationship Specialty Start Date End Date Sade Khalil MD [address] [place] [id number] PCP - General Internal Medicine 07/29/24
== END 2025-06-21 09:58 | disposition home or self-care (01) ==
LOC: HO.PMC 09:12
PROVIDERS: PCP Nurse Practitioner Family; Visit Provider Nurse Practitioner Family
DX: M19.041 Primary osteoarthritis, right hand (principal); M19.042 Primary osteoarthritis, left hand; M18.11 Unilateral primary osteoarthritis of first carpometacarpal joint, right hand; M96.1 Postlaminectomy syndrome, not elsewhere classified; M79.7 Fibromyalgia; Z87.81 Personal history of (healed) traumatic fracture; M54.16 Radiculopathy, lumbar region
CPT/HCPCS: 99204

== ENCOUNTER → 2025-06-21 09:12 | Outpatient (BNVA) | payer MEDICARE, SELFPAY | PROVIDERS: PCP Nurse Practitioner Family; Visit Provider Nurse Practitioner Family | DX: M54.16 Radiculopathy, lumbar region (principal); Z87.81 Personal history of (healed) traumatic fracture; M79.7 Fibromyalgia; M96.1 Postlaminectomy syndrome, not elsewhere classified; M18.11 Unilateral primary osteoarthritis of first carpometacarpal joint, right hand; M19.041 Primary osteoarthritis, right hand; M19.042 Primary osteoarthritis, left hand | CPT/HCPCS: 99202 ==

== ENCOUNTER 2025-07-10 09:24 | Outpatient (REF) | payer MEDICARE, SELFPAY ==
--- NOTE | ~2025-07-10 | CT_ITS ---
EXAMINATION: CT LUMBAR SPINE WITHOUT CONTRAST CLINICAL INFORMATION: Presence of other unspecified functional implants. COMPARISON: None available. TECHNIQUE: Spiral CT imaging of the lumbar spine performed in axial plane without contrast. Multiplanar reformatted images were constructed from the axial data set. This CT examination was performed using dose optimization techniques as appropriate, variously including the following: *Automated exposure control *Adjustment of mA and/or kV according to patient size (this includes techniques or standardized protocols for targeted exams where dose is matched to indication/reason for exam; i.e. extremities or head) *Use of iterative reconstruction technique FINDINGS: There is a mild levoconvex scoliosis, apex at L3-4. There is a normal lordosis. There is a trace 2 mm anterolisthesis of L3 on L4, likely degenerative. There is a 2 mm anterolisthesis of L5 on S1, likely degenerative. There has been prior fusion of L4-5 with transpedicular screws, and posterior connecting rods. Hardware appears intact, well seated, without periscrew lucencies. There is no associated disc replacement at L4-5 with carbon fiber disc graft. There is partial bony ankylosis of the disc space. There is no fracture, compression deformity, or suspicious bone lesion. Severe disc space degeneration with disc vacuum phenomenon at L3-4. Moderate disc degeneration L5-S1. There is otherwise mild disc degeneration. There is normal facet alignment. There is a left-sided L3 pars defect noted. Hypertrophic degenerative facet changes are present most notable spanning L3-S1. AXIAL IMAGES: L1-L2: No significant central canal or neural foraminal narrowing. L2-L3: There is a diffuse concentric disc bulge, moderate hypertrophic facet changes bilaterally, with severe posterior ligamentous thickening/infolding. There are findings suspicious for a right-sided synovial cyst arising from the right facet joint (series 4, image 64). Combination of findings is resulting in moderate to severe central canal stenosis, severe right and moderate left subarticular recess stenosis, and moderate bilateral neural foraminal stenosis. L3-L4: Streak artifact from hardware limits evaluation of this level. Prior left laminectomy with medial facetectomy. Posterior fusion. Severe disc degeneration. There is likely moderate central canal stenosis. There is moderate to severe bilateral neural foraminal stenosis. L4-5: Disc prosthesis and fusion at this level. Streak artifact from hardware limits evaluation of this level. No gross central canal stenosis. No significant neural foraminal narrowing identified. L5-S1: There is a diffuse concentric disc osteophytic ridge complex present, severe bilateral degenerative facet changes, posterior ligamentous thickening/infolding, resulting in mild to moderate central canal stenosis, mild bilateral subarticular recess stenosis, severe left and moderate right neural foraminal stenosis. Imaged retroperitoneal contents demonstrate normal-appearing kidneys bilaterally. There is a 2 mm nonobstructing calculus in the right kidney inferior pole. Aorta is nonaneurysmal with moderate atheromatous calcification. CT/CT lumbar spine wo IV con IMPRESSION: 1. There are no acute findings of the lumbar spine. Posterior fusion of L4-5 as detailed, without definite complication evident. 2. Moderate multilevel spondylosis, most significant at L2-3, and L5-S1. Refer to the body of the report for details. 3. Limited evaluation of L3-4, and L4-5 due to streak artifact from hardware. Electronically signed by: Arash Sanabria MD 07/12/2025 09:02 AM EDT
--- OUTSIDE RECORDS SUMMARY | 2025-07-10 09:27 | XMS_ITS | Clinical Summary ---
Author Organization [facility] Address [address] [address] Phone Care Team Providers Care Pulpwood Contractor Name Role Phone Angela David Primary Care [...] Description 06/09/2025 3:45 PM EDT Office Visit [facility] [address] [place] [address] Claire Mota MD [facility] DJD(carpometacarpal degenerative joint disease), localized primary, unspecified laterality (Primary Dx); Left hand pain; Bilateral carpal tunnel syndrome 06/09/2025 3:42 PM EDT - 06/09/2025 11:59 PM EDT Hospital Encounter [address] [id number] Claire Mota MD Discharge Disposition: Home or Self Care 06/09/2025 3:42 PM EDT - 06/09/2025 11:59 PM EDT Hospital Encounter [address] [id number] Claire Mota MD Discharge Disposition: Home or Self Care 05/10/2025 Transcribe Orders [facility] [address] [place] [address] Elisabet Galicia MA Trigger finger (Primary Dx) [...] Description 08/31/2025 2:30 PM EST Procedure visit [facility] [address] [place] [id number] Claire Mota MD [address] [place] [address] Orthopedics & Sports Medicine, [facility] [place] [address] [email or web address] Health Maintenance Due Date Last Done [...] date of service. us Claire Mota MD [facility] XR UPPER EXTREMITY Fi nal Result * [...] nal Result from Last 3 Months Insurance [employer] SUPPLEMENT MEDICARE PART A & B [employer] SUPPLEMENT MEDICARE PART A & B [employer] SUPPLEMENT MEDICARE PART A & B [employer] SUPPLEMENT MEDICARE PART A & B [employer] SUPPLEMENT MEDICARE PART A & B MEDICARE PART A & B Care Teams Pulpwood Contractor Relationship Specialty Start Date End Date Angela David PA [address] [place] [address] PCP - General Physician Electronic Equipment Installer 05/11/25 Additional Source Comments The information contained in this document represents components of the legal health record. It is not the complete legal health record.[facility]
--- OUTSIDE RECORDS SUMMARY | 2025-07-10 09:27 | XMS_ITS | Clinical Summary ---
Author Organization [facility] Address [address] [facility] [address] [place] [address] Phone Care Team Providers Care Supervisor Mold Construction Name Role Phone Sade Khalil MD Primary [...] Visit [facility] [address] [place] [address] Jassi Moore MD [address] [address] Health Maintenance Due Date Last [...] complete this topic Insurance Medicare Care Teams Supervisor Mold Construction Relationship Specialty Start Date End Date Sade Khalil MD [address] [place] [address] [id number] PCP - General Internal Medicine 07/29/24
--- OUTSIDE RECORDS SUMMARY | 2025-07-10 09:27 | XMS_ITS | Clinical Summary ---
Author Organization [facility] Address [address] [place] [address] Care Team Providers Care Cylinder Steamer Name Role Phone Robyn Khalil MD Primary [...] Description 04/21/2025 10:30 AM EDT Clinical Support [facility] [address], [place] [address] Onelia Castillo Au.D Otalgia of both ears (Primary Dx); Sensorineural hearing loss, bilateral 04/20/2025 9:30 AM EDT Office Visit [facility] [address], [place] [address] Emil Espitia MD Otalgia of [...] Months Insurance MEDICARE PART A & B [place] [id number] Care Teams Cylinder Steamer Relationship Specialty Start Date End Date Robyn Khalil MD [address] [place] [phone] PCP - General Internal Medicine 04/20/25
== END 2025-07-10 09:25 | disposition home or self-care (01) ==
LOC: HO.CT 09:24
PROVIDERS: PCP Physician Assistant; Visit Provider Nurse Practitioner Family
DX: M47.817 Spondylosis without myelopathy or radiculopathy, lumbosacral region (principal); M96.1 Postlaminectomy syndrome, not elsewhere classified; M81.0 Age-related osteoporosis without current pathological fracture; Z96.89 Presence of other specified functional implants; Z87.81 Personal history of (healed) traumatic fracture
CPT/HCPCS: 72131

== ENCOUNTER → 2025-07-10 09:26 | Outpatient (BNV) | payer MEDICARE, SELFPAY | PROVIDERS: PCP Physician Assistant; Visit Provider Radiology Diagnostic Radiology | DX: M47.816 Spondylosis without myelopathy or radiculopathy, lumbar region (principal) | CPT/HCPCS: 72131 ==

== ENCOUNTER 2025-07-16 10:33 | Outpatient (AMB) | payer MEDICARE, SELFPAY ==
--- NOTE | 2025-07-16 10:44 | MHC.OFFVIS ---
Vital Signs 07/16/25 10:48 Height 5 ft 3 in Weight 143 lb BMI 25.3 BP 181/78 H Blood Pressure Location Rt brachial Position Sitting Pulse 99 Pulse Source Pulse Oximeter Pulse Oximetry (%) 100 Oxygen Delivery Method Room Air Intake Visit Reasons: Follow Up CT scan results Intake Note: Pain today 06/16 Agriculture Extension Specialist Required: No Accompanied by: Self / Same As Patient Allergies morphine Allergy (Severe, Verified 07/16/25 10:49) Itching bandages Allergy (Severe, Uncoded 06/14/25 09:26) Itching flu vaccine Allergy (Severe, Uncoded 06/14/25 09:26) Hives HPI Comments Details: The patient is a 69-year-old female presenting with the need to discuss her CAT scan results and manage her chronic pain conditions. The patient has a history of osteoporosis, which was recently confirmed as critical following a bone scan. This condition has limited treatment options, such as steroid injections, due to the risk of exacerbating bone fragility. Her medical history also includes scoliosis and a compression fracture in the upper back, which contribute to her chronic pain. She also has Monoclonal Gammopathy of Undetermined Significance (MGUS), a condition that is being monitored to rule out progression to multiple myeloma. She is followed by Dr. Kevin. The patient experiences chronic back pain with radiculopathy with history of L4-L5 posterior fusion, with persistent pain radiating to both legs, more severely affecting the left leg. The pain is associated with moderate multilevel arthritis, most severe at L2-L3 and L5-S1, and spinal stenosis affecting multiple levels. She has a spinal cord stimulator, which was replaced in 2020, but it does not provide adequate pain relief for her legs. The patient has a history of hypertension, which was noted to be elevated during the visit, which she attributes to anxiety. Additionally, she has a small, non-obstructing kidney stone and moderate aortic calcification, which she will continue to monitor with her PCP. - Affect: Pain impacts mood and causes anxiety, as indicated by elevated blood pressure during the visit - Analgesia: Current pain management includes a spinal cord stimulator and oxycodone prescribed by her primary care physician - Adverse Effects: No specific adverse effects from medications were discussed - Activities of Daily Living: Pain significantly affects mobility, requiring the use of a cane and sometimes a walker - Aberrant Drug Related Behaviors: No aberrant behaviors were reported PRIOR: The patient is a 69-year-old female presenting with lumbar radiculopathy and associated back pain. The patient reports that the third and fourth vertebrae in her back collapsed in October 2024, leading to compression and pain radiating to her legs. She is scheduled for an MRI this week to further evaluate the condition. The patient has a history of osteoporosis, which contributes to her risk of fractures. She is under the care of an Live Games Dealer for this condition. 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 She is seeking a second opinion from a Hand specialist before proceeding with surgery. The patient has a history of carpal tunnel syndrome, which she believes affects both hands. Her medical history includes chronic kidney disease, heart disease, hyperlipidemia, and prediabetes. She has previously been treated with numerous steroid injections for back pain, which she believes may have contributed to her osteoporosis. Patient has trialed multiple medications in the past for pain management, including gabapentin, pregabalin, oxycodone, duloxetine with persistent symptoms. - Pain onset: Chronic pain, worsening since October 2024, following vertebral collapse - Quality: Dull, sore, hurting, achy, heavy, sharp, radiating - Primary location: Lower back - Radiation: To both groins, anterior thighs, knees, and occasionally left calf - Exacerbating factors: Movement, weather changes, walking, sitting, lifting - Relieving factors: Use of lumbar spinal cord stimulator ([employer] system), resting, oxycodone - Interference: Affects sleep, requires medication for sleep - Affect: Pain impacts mood and psychological wellbeing, requiring psychiatric support, sees Dr. Joaquin - Analgesia: Current medications include pregabalin, gabapentin, and occasional oxycodone; pain rated 6/10 in the morning and 8/10 in the afternoon - Adverse Effects: Previous steroid injections may have contributed to osteoporosis - Activities of Daily Living: Pain affects daily activities, requiring use of a cane - Aberrant Drug Related Behaviors: History of fentanyl addiction, currently managed with psychiatric support Oswestry Low Back Pain Disability Score=28 [facility] Medical History Migraines Anxiety and depression GERD (gastroesophageal reflux disease) Kidney disease Fibromyalgia Neck ache Osteoarthritis Arthritis Hypertension Surgical History Spinal arthrodesis present History of back surgery H/O: hysterectomy H/O section Family History Sister Mental health disorder Maternal Grandfather Cancer Mother Hypertension Cardiovascular disease High cholesterol Diabetes Father Hypertension Cardiovascular disease High cholesterol Social History Household Members: None Both parents involved: No Caregiver staying overnight: No Housing: Apartment Are you a primary director of home care hospice to a significant other at home: No Do you presently have visiting nurse or other home services: No 75 years or older and lives alone: No Alcohol intake: never Patient Tobacco Use Status: Never used Tobacco e-Cigarette/Vaping Use: Never Used Second Hand Smoke Exposure: No Substance Use Type: Marijuana Review of Systems Const Details: - Musculoskeletal: Reports chronic back pain with radiculopathy, radiating to both legs, left>right - Cardiovascular: Reports elevated blood pressure, denies chest pain, dizziness, chest pressure or dyspnea - Neurological: Reports shocking pains in legs, denies other neurological symptoms - Genitourinary: Reports known kidney stone, denies urinary symptoms All systems reviewed & are unremarkable except as noted in HPI and below Physical Exam Vital Signs: Last Vital Signs Pulse 99 07/16/25 10:48 BP 181/78 H 07/16/25 10:48 Pulse Ox 100 07/16/25 10:48 Oxygen Delivery Method Room Air 07/16/25 10:48 BMI result Body Mass Index 25.3 General: Appears afebrile. Alert and oriented. Mood and affect appropriate. Follows and participates in conversation appropriately. Respiratory effort is unlabored. No cough. Able to transition from sit to stand unassisted. Ambulates with bilaterally normal heel strike and toe off, increased LLE pain with heel/toe standing. General: Yes no CVA tenderness Back/Spine/Pelvis Other: Limited lumbar ROM due to pain. No midline tenderness in cervical, thoracic or lumbar spine. Lumbar extension and flexion reproduces moderate to severe pain. Demonstrates 5/5 right and 4/5 left strength of quadriceps bilaterally as well as flexion/dorsiflexion of bilateral feet against resistance. 2+ pedal pulses bilaterally. Straight leg rise with dorsiflexion positive bilaterally. +1 patellar and achilles reflexes bilaterally. Facet loading test positive bilaterally. Juaquin sign, Abel?s, Pelvic compression and Stinchfield tests positive on the right. Mild groin pain with I/E hip rotations. Valsalva maneuver negative. Well-healed scars from previous lumbar fusion and SCS implantation surgeries, non-tender battery site in left upper buttock. Back: no CVA tenderness Cervical Spine: loss of normal cervical lordosis, cervical muscular tenderness, pain with cervical ROM, No Cervical spine tenderness and No step off deformity Thoracic/Lumbar Spine: thoracic and lumbar spine normal to inspection, Thoracic/lumbar spine scar(s), Lasegue's sign positive bilateral and diffuse, pain with thoraco-lumbar ROM, paraspinal muscle tenderness, thoraco-lumbar ROM limited, No thoracic spinal tenderness and No lumbar spinal tenderness Sacroiliac joints: on the right tender to palpation and on the left nontender Extrem General: Yes capillary refill normal, Yes no clubbing, cyanosis or edema and Yes no calf tenderness Results Reviewed Results Reviewed: CT LUMBAR SPINE WITHOUT CONTRAST 07/10/25 CLINICAL INFORMATION: Presence of other unspecified functional implants. COMPARISON: None available. FINDINGS: There is a mild levoconvex scoliosis, apex at L3-4. There is a normal lordosis. There is a trace 2 mm anterolisthesis of L3 on L4, likely degenerative. There is a 2 mm anterolisthesis of L5 on S1, likely degenerative. There has been prior fusion of L4-5 with transpedicular screws, and posterior connecting rods. Hardware appears intact, well seated, without periscrew lucencies. There is no associated disc replacement at L4-5 with carbon fiber disc graft. There is partial bony ankylosis of the disc space. There is no fracture, compression deformity, or suspicious bone lesion. Severe disc space degeneration with disc vacuum phenomenon at L3-4. Moderate disc degeneration L5-S1. There is otherwise mild disc degeneration. There is normal facet alignment. There is a left-sided L3 pars defect noted. Hypertrophic degenerative facet changes are present most notable spanning L3-S1. AXIAL IMAGES: L1-L2: No significant central canal or neural foraminal narrowing. L2-L3: There is a diffuse concentric disc bulge, moderate hypertrophic facet changes bilaterally, with severe posterior ligamentous thickening/infolding. There are findings suspicious for a right-sided synovial cyst arising from the right facet joint (series 4, image 64). Combination of findings is resulting in moderate to severe central canal stenosis, severe right and moderate left subarticular recess stenosis, and moderate bilateral neural foraminal stenosis. L3-L4: Streak artifact from hardware limits evaluation of this level. Prior left laminectomy with medial facetectomy. Posterior fusion. Severe disc degeneration. There is likely moderate central canal stenosis. There is moderate to severe bilateral neural foraminal stenosis. L4-5: Disc prosthesis and fusion at this level. Streak artifact from hardware limits evaluation of this level. No gross central canal stenosis. No significant neural foraminal narrowing identified. L5-S1: There is a diffuse concentric disc osteophytic ridge complex present, severe bilateral degenerative facet changes, posterior ligamentous thickening/infolding, resulting in mild to moderate central canal stenosis, mild bilateral subarticular recess stenosis, severe left and moderate right neural foraminal stenosis. Imaged retroperitoneal contents demonstrate normal-appearing kidneys bilaterally. There is a 2 mm nonobstructing calculus in the right kidney inferior pole. Aorta is nonaneurysmal with moderate atheromatous calcification. IMPRESSION: 1. There are no acute findings of the lumbar spine. Posterior fusion of L4-5 as detailed, without definite complication evident. 2. Moderate multilevel spondylosis, most significant at L2-3, and L5-S1. Refer to the body of the report for details. 3. Limited evaluation of L3-4, and L4-5 due to streak artifact from hardware. Assessment & Plan Assessment & Plan (1) Failed back syndrome: Code(s): M96.1 - Postlaminectomy syndrome, not elsewhere classified Category: Medical (2) S/P insertion of spinal cord stimulator: Code(s): Z96.89 - Presence of other specified functional implants Category: Surgical (3) Lumbar radiculopathy: Code(s): M54.16 - Radiculopathy, lumbar region Category: Medical (4) Lumbosacral spondylosis: Code(s): M47.817 - Spondylosis without myelopathy or radiculopathy, lumbosacral region Category: Medical Plan The plan includes avoiding steroid injections due to the patient's osteoporosis, and instead considering nonsteroidal diagnostic injections to manage her axial pain. The spinal cord stimulator will be re-evaluated by the [employer] system to ensure optimal pain coverage, particularly for the legs. The patient is advised to follow up with Neurosurgery to explore further management options for her spinal conditions. She reports upcoming follow up with Dr. Elizabeth on 08/27/25. Additionally, she is encouraged to have a flexion and extension x-ray to rule out spinal instability. Monitoring of her kidney stone and aortic calcification will continue, with potential ultrasound evaluation of the aorta by her primary care physician. All questions and concerns have been answered and patient agreed with the treatment plan. Follow up for xray results and sooner as needed. Patient was informed and verbally consented to the use of an ambient scribe for clinic note documentation during this visit. Orders: Orders XR lumbar spine 6V w bending 07/16/25 M47.817 - Spondylosis without myelopathy or radiculopathy, lumbosacral region, M54.16 - Radiculopathy, lumbar region, M96.1 - Postlaminectomy syndrome, not elsewhere classified, Z96.89 - Presence of other specified functional implants Coding Level of Care Code Est Pt Level 4 (58086) Complex EM visit Add On G2211 Diagnoses Failed back syndrome M96.1 S/P insertion of spinal cord stimulator Z96.89 Lumbar radiculopathy M54.16 Lumbosacral spondylosis M47.817
[2025-07-16 10:48] VITALS: BP 181/78; PULSE 99; O2SAT 100; BMI 25.3
== END 2025-07-16 11:06 | disposition home or self-care (01) ==
LOC: HO.PMC 10:34
PROVIDERS: PCP Physician Assistant; Visit Provider Nurse Practitioner Family
DX: M96.1 Postlaminectomy syndrome, not elsewhere classified (principal); Z96.89 Presence of other specified functional implants; M54.16 Radiculopathy, lumbar region; M47.817 Spondylosis without myelopathy or radiculopathy, lumbosacral region
CPT/HCPCS: 99214; G2211

== ENCOUNTER → 2025-07-16 10:33 | Outpatient (BNVA) | payer MEDICARE, SELFPAY | PROVIDERS: PCP Physician Assistant; Visit Provider Nurse Practitioner Family | DX: M96.1 Postlaminectomy syndrome, not elsewhere classified (principal); Z98.1 Arthrodesis status; M54.16 Radiculopathy, lumbar region; M47.817 Spondylosis without myelopathy or radiculopathy, lumbosacral region | CPT/HCPCS: 99212 ==

== ENCOUNTER 2025-07-29 09:22 | Outpatient (AMB) | payer MEDICARE, SELFPAY ==
--- NOTE | 2025-07-29 09:29 | MHC.OFFVIS ---
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 Pt states her right hand is worse. Pt states she has stabbing pain in both hands and states her fingertips and palms hurt as well. Pt has a brace for her right hand/wrist that she used to use but isnt using it anymore. She states she does use Voltaren on her hands which provides temporary relief. 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 Pt states her right hand is worse. Pt states she has stabbing pain in both hands and states her fingertips and palms hurt as well. Pt has a brace for her right hand/wrist that she used to use but isnt using it anymore. Patient does report numbness and tingling in bilateral hands, that has intermittent, daily, and worse at night. She states she does use Voltaren on her hands which provides temporary relief. [facility] Medical History Migraines Anxiety and depression GERD (gastroesophageal reflux disease) Kidney disease Fibromyalgia Neck ache Osteoarthritis Arthritis Hypertension Surgical History Spinal arthrodesis present History of back surgery H/O: hysterectomy H/O section Family History Sister Mental health disorder Maternal Grandfather Cancer Mother Hypertension Cardiovascular disease High cholesterol Diabetes Father Hypertension Cardiovascular disease High cholesterol Social History Household Members: None Both parents involved: No Caregiver staying overnight: No Housing: Apartment Are you a primary resident care manager to a significant other at home: No Do you presently have visiting nurse or other home services: No 75 years or older and lives alone: No Alcohol intake: never Patient Tobacco Use Status: Never used Tobacco e-Cigarette/Vaping Use: Never Used Second Hand Smoke Exposure: No Substance Use Type: Marijuana Review of Systems Const All systems reviewed & are unremarkable except as noted in HPI and below Physical Exam Vital Signs: BMI result Body Mass Index 25.3 Extrem Other: Neuro: Normal sensation of the tips of all digits of bilateral hands in the office today No thenar or intrinsic wasting. Good APB muscle firing and good finger cross. Vascular: Capillary refill brisk. ROM: Patient can make a fist and extend all their digits. Skin: No lacerations or abrasions noted. General: No ecchymosis. No erythema or evidence of infection. [] Assessment & Plan Assessment & Plan (1) Numbness and tingling in both hands: Code(s): R20.0 - Anesthesia of skin; R20.2 - Paresthesia of skin Category: Medical Plan 1. Numbness, tingling, pain of bilateral hands Symptoms intermittent, daily, worse at night Patient is educated about this condition Patient is educated about the typical recovery course At this time, EMG and nerve conduction study is ordered to assess the health of the nerves of bilateral upper extremities Patient will follow-up after EMG and nerve conduction study for results review and discussion of further treatment options if indicated Patient understands this in his amenable to this plan Orders: Orders NE electromyogram (EMG) 07/29/25 R20.0 - Anesthesia of skin, R20.2 - Paresthesia of skin XR Hand Bilat min 3v 07/29/25 M79.643 - Pain in unspecified hand NE nerve conduction velocity 07/29/25 R20.0 - Anesthesia of skin, R20.2 - Paresthesia of skin Coding Level of Care Code New Pt Level 3 (44060) Diagnoses Numbness and tingling in both hands R20.0; R20.2
[2025-07-29 09:30] VITALS: BMI 25.3
--- OUTSIDE RECORDS SUMMARY | 2025-07-29 10:28 | XMS_ITS | Clinical Summary ---
Author Organization [facility] Address [address] [address] Phone Care Team Providers Care Dedicated Intermodal Truck Driver Name Role Phone Angela David Primary Care [...] Description 06/09/2025 3:45 PM EDT Office Visit [facility] Orthopedics & Sports Medicine [address] [place] [address] Claire Mota MD [facility] DJD(carpometacarpal degenerative joint disease), localized primary, unspecified laterality (Primary Dx); Left hand pain; Bilateral carpal tunnel syndrome 06/09/2025 3:42 PM EDT - 06/09/2025 11:59 PM EDT Hospital Encounter [address] [address] Claire Mota MD Discharge Disposition: Home or Self Care 06/09/2025 3:42 PM EDT - 06/09/2025 11:59 PM EDT Hospital Encounter [address] [address] Claire Mota MD Discharge Disposition: Home or Self Care 05/10/2025 Transcribe Orders [facility] Neurology [address] [place] [address] Elisabet Galicia MA Trigger finger (Primary Dx) [...] Description 08/31/2025 2:30 PM EST Procedure visit [facility] Orthopedics & Sports Medicine [address] [place] [id number] Claire Mota MD [address] [place] [address] Orthopedics & Sports Medicine, [facility] [place] [address] [email or web address] Maintenance Due Date Last Done [...] date of service. us Claire Mota MD [facility] [place] UPPER EXTREMITY Fi nal Result * [...] nal Result from Last 3 Months Insurance [employer] SUPPLEMENT MEDICARE PART A & B [employer] MEDEX SUPPLEMENT MEDICARE PART A & B [employer] MEDEX SUPPLEMENT MEDICARE PART A & B [employer] MEDEX SUPPLEMENT MEDICARE PART A & B [employer] MEDEX SUPPLEMENT MEDICARE PART A & B Member Subscriber Plan / Payer (Ef fective 2002-Present) Name:Sheryl Spivey Member ID:[id number] Relation to Subscriber:Self Name:Sheryl Spivey Subscriber ID:[id number] Payer ID:[id number] Group ID:Not on file Type:Medicare Address: [employer] [address] [place] [address] MEDICARE PART A & B Member Subscriber Plan / Payer (Ef fective 2002-Present) Name:Sheryl Spivey Member ID:[id number] Relation to Subscriber:Self Name:Sheryl Spivey Subscriber ID:[id number] Payer ID:[id number] Group ID:Not on file Type:Medicare Address: [employer] [address] [place] [address] Care Teams Dedicated Intermodal Truck Driver Relationship Specialty Start Date End Date Angela David PA [address] [place] [address] PCP - General Physician Security Business Analyst 05/11/25 Additional Source Comments The information contained in this document represents components of the legal health record. It is not the complete legal health record.[facility]
--- OUTSIDE RECORDS SUMMARY | 2025-07-29 10:28 | XMS_ITS | Clinical Summary ---
Author Organization [facility] Address [address] [place] [address] Care Team Providers Care Studio Manager Name Role Phone Robyn Khalil MD Primary [...] Osteopenia 04/04/2023 Hypercalcemia 04/04/2023 Urinary incontinence 04/04/2023 Immunizations Immunization Administration Dates Next Due Influenza [...] Vaccines 50+ Completed 07/23/2023, 03/2018 RSV Vaccine 50 years and older and Patients Completed 07/23/2023 Hepatitis B Vaccines Aged Out No long er eligible based on patient's age to complete this topic Insurance MEDICARE PART A & B [place] [id number] Care Teams Studio Manager Relationship Specialty Start Date End Date Robyn Khalil MD [address] [place] [address] [id number] [id number] PCP - General Internal Medicine 04/20/25
== END 2025-07-29 10:21 | disposition home or self-care (01) ==
LOC: HO.HOS 09:22
PROVIDERS: PCP Nurse Practitioner Family
DX: R20.0 Anesthesia of skin (principal); R20.2 Paresthesia of skin
CPT/HCPCS: 99203

== ENCOUNTER 2025-07-29 09:22 | Outpatient (REF) | payer MEDICARE, SELFPAY ==
--- NOTE | ~2025-07-29 | XR_ITS ---
CLINICAL HISTORY: M79.643 - Pain in unspecified hand 3 view bilateral hand Comparison: None provided Findings: Right hand: Severe joint space narrowing and marginal osteophyte formation is seen at the 1st carpometacarpal joint. Mild degenerative changes are also seen in the 2nd-5th DIP joints and 2nd PIP joint. No acute fracture or dislocation is identified. 5 mm calcification is seen proximal to the 1st metacarpal. Left hand: Mild joint space narrowing and marginal osteophyte formation is seen at the 1st carpometacarpal joint. Mild degenerative changes are also seen in the 3rd DIP joint. No acute fracture or dislocation is identified. Soft tissue structures appear within normal limits. IMPRESSION: 1. Severe degenerative changes in the right hand and mild degenerative changes in the left hand. This document has been electronically signed by: David Alfonso on 07/30/2025 10:24:37
== END 2025-07-29 09:23 | disposition home or self-care (01) ==
LOC: HO.HOSX 09:22
PROVIDERS: PCP Nurse Practitioner Family
DX: M19.041 Primary osteoarthritis, right hand (principal); M19.042 Primary osteoarthritis, left hand; R20.0 Anesthesia of skin; R20.2 Paresthesia of skin
CPT/HCPCS: 73130; 99202

== ENCOUNTER → 2025-07-29 09:40 | Outpatient (BNV) | payer MEDICARE, SELFPAY | PROVIDERS: PCP Nurse Practitioner Family; Visit Provider Radiology Vascular & Interventional Radiology | DX: M19.041 Primary osteoarthritis, right hand (principal); M19.042 Primary osteoarthritis, left hand | CPT/HCPCS: 73130 ==